=== PATIENT | female | born 1940 | race Caucasian/White ===

== ENCOUNTER → 2016-04-14 | Outpatient (CLI) | payer MEDICARE ==
[~2016-04-14] MED LIST: ALAV10TA PO; DIOV80TA2 PO; ESTR42.5V PV; GABA300C3 PO; MONT10TA2 PO; PRED50TA PO; PRIM50 PO; RANI150 PO; SERT50 PO; TAMS0.4C67 PO; VITATAB25 PO
== END ==
LOC: PLAB 11:30
DX: M31.6 Other giant cell arteritis (principal)
CPT/HCPCS: 85652

== ENCOUNTER → 2016-05-18 | Outpatient (CLI) | payer MEDICARE | LOC: PLAB 11:08 | DX: M31.6 Other giant cell arteritis (principal) | CPT/HCPCS: 36415; 85652 ==

== ENCOUNTER → 2017-01-14 | Outpatient (CLI) | payer MEDICARE ==
[~2017-01-14] MED LIST changes: +ALBU6.7H INH; +DIOV160T3 PO; +ESTR42.5V VAGINAL; +MIRA3350 PO; +OCUVTAB4 PO; +PRED5TAB PO; +PRIM50TA5 PO; +VITA1000 PO; +ZANT150T2 PO; +ZOLO50TA PO
[2017-01-14 12:28] LABS: AUTOMATED NEUTROPHIL # 6.9 TH/MM3 (1.8-7.7); BASOPHIL % 0.4 % (0.0-2.0); EOSINOPHIL # 0.2 TH/MM3 (0-0.4); EOSINOPHIL % 1.8 % (0.0-4.0); HEMATOCRIT 37.2 % (35.0-46.0); HEMO FLAGS DIFF FINAL; LYMPH % 13.4 % (9.0-44.0); LYMPHOCYTE # 1.2 TH/MM3 (1.0-4.8); MEAN CELL VOLUME 88.1 FL (80.0-100.0); MEAN CORPUSCULAR HEMOGLOBIN 29.7 PG (27.0-34.0); MEAN CORPUSCULAR HGB CONC 33.7 % (32.0-36.0); MONO % 6.6 % (0.0-8.0); NEUT % 77.8 % (16.0-70.0); PLATELET COUNT 226 TH/MM3 (150-450); RED BLOOD COUNT 4.22 MIL/MM3 (4.00-5.30); RED CELL DISTRIBUTION WIDTH 14.4 % (11.6-17.2); WHITE BLOOD COUNT 8.9 TH/MM3 (4.0-11.0)
[2017-01-14 12:37] LABS: ALT (GPT) 28 U/L (10-53); ANION GAP 7 MEQ/L (5-15); AST (GOT) 16 U/L (15-37); BICARBONATE 30.6 MEQ/L (21.0-32.0); BLOOD UREA NITROGEN 20 MG/DL (7-18); CHLORIDE 101 MEQ/L (98-107); GLOMERULAR FILTRATION RATE 72 ML/MIN (>89); GLUCOSE,FASTING 114 MG/DL (74-99); POTASSIUM 4.8 MEQ/L (3.5-5.1); SODIUM (NA) 139 MEQ/L (136-145)
[2017-01-14 12:39] LABS: ALKALINE PHOSPHATASE 72 U/L (45-117); TOTAL BILIRUBIN ADULT 0.4 MG/DL (0.2-1.0)
[2017-01-14 12:56] LABS: BLOOD, URINE NEG (NEG); COMMENT (UR) CULT NOT INDICATED; CULTURE IF INDICATED CULT NOT INDICATED; GLUCOSE,URINE NEG (NEG); KETONE, URINE NEG (NEG); MUCUS URINE FEW /lpf (OCC); NITRITE,URINE NEG (NEG); PH, URINE 6.5 (5.0-8.5); SQUAMOUS EPITHELIAL CELL URINE <1 /hpf (0-5); URINE COLOR LIGHT-YELLOW (YELLW/STRAW)
--- NOTE | 2017-01-15 12:07 | EKG ---
Date Performed: 01/14/2017 Time Performed: 11:45:42 PTAGE: 76 years EKG: Sinus rhythm NORMAL ECG Compared to prior tracing no significant change PREVIOUS TRACING 03/08/2014 12.46.00 DOCTOR: Glenroy Orantes Interpretating Date/Time 01/15/2017 12:06:59
== END ==
LOC: CPRE 11:14
PROVIDERS: ATTEND Obstetrics & Gynecology Gynecology
DX: Z01.812 Encounter for preprocedural laboratory examination (principal); Z01.810 Encounter for preprocedural cardiovascular examination; N81.6 Rectocele
CPT/HCPCS: 36415; 80053; 81001; 85025; 93005

== ENCOUNTER → 2017-01-20 | Day surgery (SDC) | payer MEDICARE ==
--- NOTE | 2017-01-14 11:40 | MH ---
cc: SONIA MONCADA DATE OF ADMISSION 01/20/2017 DATE OF 1940 REASON FOR ADMISSION Posterior repair HISTORY OF PRESENT ILLNESS The patient is a 76-year-old white female 2, para 2 status post prior hysterectomy. He is having issues with pelvic organ prolapse. In the office, we note stage II rectocele. The patient has multiple comorbidities including elevated body mass index, temporal arteritis, chronic constipation that increases the risk of failure and complication. After a long discussion, the patient has opted for pelvic repair. PAST MEDICAL HISTORY The patient's med medical history is notable for: 1. Hypertension 2. Neuropathy 3. Macular degeneration 4. Temporal arteritis ALLERGIES SULFA MEDICATIONS 1. Flomax 0.4 mg daily 2. Gabapentin 300 mg daily 3. Primidone 50 mg daily 4. Zoloft 50 mg daily 5. Prednisone 25 mg daily PAST SURGICAL HISTORY 1. Total abdominal hysterectomy for benign condition 2. Pelvic fracture 3. Tonsillectomy 4. Appendectomy OBSTETRICAL HISTORY Two vaginal deliveries. GYNECOLOGIC HISTORY No STD's or abnormal Pap smears. SOCIAL HISTORY A 20 pack-year smoking history, but quit smoking 20 years ago. has good social support. Also on the medical history. FAMILY HISTORY Noncontributory REVIEW OF SYSTEMS As above, no chest pain, orthopnea, PND. No nausea, vomiting, fevers or chills. No vaginal bleeding or discharge. PHYSICAL EXAM On exam, she is afebrile, vital signs stable. Blood pressure 140/80, height 5.3, weight 170, BMI is 30. GENERAL: The patient is alert and oriented in no acute distress. No sign of cognitive dysfunction or depression. HEENT: Within normal limits. NECK: Supple. No JVD. CHEST: Clear. HEART: Regular rate and rhythm. ABDOMEN: Soft and nontender. No hepatosplenomegaly. No CVA tenderness. PELVIC: Pelvic exam in the office, we note pop Q score Aa is -2, Ap is +2. Point C is -7. Genital hiatus 6, perineal body is 4, total vaginal length is 10. No significant postvoid residual. Further exam under anesthesia. EXTREMITIES: Warm, skin without rashes. NEUROLOGIC: Nonfocal. No DVT signs. ASSESSMENT Patient with stage II pelvic organ prolapse. The patient and I discussed options for management and treatment. She is at increased risk for failure secondary to chronic steroid use, elevated body mass index. Patient is aware of options. She is aware of issues regarding failure, pain, bleeding, infection as well as sexual dysfunction issues. The unlikely event of fistula is also discussed. At this point, we will proceed with pelvic repair procedure. We will use DVT prophylaxis with sequential compression device, antibiotic prophylaxis with Ancef 2 grams and I suspect anesthesia will want to give her a stress dose of steroids and I will defer to them on management of that. Anticipate outpatient procedure. MD SANKET Jewell/SUZIE /11:15 AM /11:28 AM
[~2017-01-20] VITALS: Ht 162.6 cm; Wt 80.9 kg
[~2017-01-20] MED LIST changes: -ALAV10TA PO; +CHLORHEXIDINE GLUCONATE 2 % 1 PACK (2 CLOTHS) TOPICAL PRN; -DIOV80TA2 PO; +DO NOT ADM ANY ANTICOAGULANT DRUGS PRN; -ESTR42.5V PV; +ESTROGENS CONJUGATED VAG CREA 15 APPL/30 GM TUBE ONE; +FLUORESCEIN SOD 10% SOLN 500 MG/5 ML AMP ONE; -GABA300C3 PO; +INSULIN HUMAN REGULAR 1,000 UNITS/10 ML VIAL SQ PRN; +KETOROLAC TROMETHAMINE 30 MG/ML (IVP) VIAL IV PUSH ONE; +KETOROLAC TROMETHAMINE 30 MG/ML (IVP) VIAL IV PUSH PRN; +KETOROLAC TROMETHAMINE 30 MG/ML (IVP) VIAL ONE; +LACTATED RINGER'S 1000 ML IV PRN; +LIDOCAINE 1%/EPINEPHrine 1:100,000 SOLN 50 ML VIAL ONE; +LIDOCAINE HCL 1% PF 5 ML SYRINGE OTHER ONE; +METOPROLOL TARTRATE 25 MG TAB PO PRN; +MIDAZOLAM HCL 2 MG/2 ML VIAL IV ONE; +ONDANSETRON HCL 4 MG/2 ML VIAL IV PRN; +ONDANSETRON HCL 4 MG/2 ML VIAL IV PUSH ONE; +POVIDONE IODINE 5% (ANTISEPSIS KIT) 4 APPLICATIONS EACH NARE PRN; -PRED50TA PO; -PRIM50 PO; +PROPOFOL 200 MG/20 ML AMP IV ONE; -RANI150 PO; -SERT50 PO; +SODIUM CHLORID 0.9% 500 ML IV PRN; -TAMS0.4C67 PO; -VITATAB25 PO; +ceFAZolin 2 GM PREMIX 50 ML IV SCH; +ePHEDrine/NS 25 MG/5 ML SYR IV ONE; +traMADol HCL 50 MG TAB PO PRN
--- NOTE | 2017-01-20 11:47 | MP ---
cc: SONIA MONCADA MD DATE OF SURGERY 01/20/2017 PREOPERATIVE DIAGNOSIS Rectocele. POSTOPERATIVE DIAGNOSES Rectocele with enterocele, mild apical prolapse. PROCEDURE 1. Posterior repair with enterocele repair. 1. Extraperitoneal apical suspension. 2. Perineoplasty. SURGEON MD Fer ANESTHESIA Laryngeal mask. PHYSICIST ACOUSTICS [facility] staff x2. FLUIDS 1000 cc crystalloid. BLOOD LOSS 20 cc. FINDINGS External genitalia poorly estrogenized. POP-Q score: Aa is -3, Ap is +1. Point C is -4. Total vaginal length is 10. Genital hiatus is 7. Perineal body is 4. Following repair, Aa is -3, Ap is -3. Point C is -8. Total vaginal length is 8. Genital hiatus is 6. Perineal body is 4. Rectal exam normal following repair. SPECIMENS Vaginal mucosa COMPLICATIONS None. DISPOSITION AND PLAN To the recovery room stable. COUNTS Needle and sponge counts correct. DRAINS Kenney catheter. ANTIBIOTIC PROPHYLAXIS Ancef 2 grams. DVT PROPHYLAXIS Sequential pressure device. TIME-OUT PROCEDURE Per protocol SUMMARY OF INDICATIONS Patient with symptomatic pelvic organ prolapse. The patient has multiple comorbidities including temporal arteritis, elevated body mass index and chronic steroid use that put her at increased risk for surgical complication. She had been considering pessary use but decided to have a surgical correction. PROCEDURE The patient was taken to the operating room theater, identified, prepped and draped in a fashion appropriate for the planned procedure. In light of her history of pelvic fracture, she was actually positioned while awake using appropriate modesty techniques and she had no pain with lithotomy position. She was then put under anesthesia. Kenney catheter was placed. The bladder was drained. We then performed posterior repair by infiltrating with epinephrine lidocaine solution, performing a pudendal block on each side. We then took the vaginal mucosa from the perineal body to the apex of the vagina, reflected the rectal tissues carefully. There was some mild to moderate scarring here but there was no damage to the rectum. We had one finger in the rectum for traction and counter-traction. Once we mobilized the vaginal mucosa from the rectum, we were able to perform posterior repair and enterocele repair with delayed absorbable suture. The apical suspension was performed extraperitoneal approach affixing the apex to the remnants of the cervical ring. The vaginal mucosa was trimmed, closed with a running Vicryl suture, perineoplasty performed in standard fashion. Above findings noted. Rectal exam confirmed no damage to the rectum, suture line intact. Hemostatic matrix was used during the case to obviate the need for packing. The patient tolerated the procedure well, was returned to Recovery in stable condition. MD SANKET Jewell/KARIN /11:25 AM /11:36 AM
[2017-01-20 13:19] VITALS: BP 120/49; PULSE 73; RESP 18; TEMP 97.5; O2SAT 96
== END | disposition home or self-care (01) ==
LOC: HSDC 07:48
PROVIDERS: ATTEND Obstetrics & Gynecology Gynecology
DX: N81.6 Rectocele (principal); K59.09 Other constipation; I10 Essential (primary) hypertension; Z87.891 Personal history of nicotine dependence; Z88.2 Allergy status to sulfonamides
CPT/HCPCS: 00902; 57250; 57282; 88302; J0690; J1885; J2250; J2405; J3010; J7120; 88305

== ENCOUNTER 2017-01-22 19:47 | Emergency (ER) | payer MEDICARE ==
[~2017-01-22] VITALS: Ht 160 cm; Wt 81.0 kg
[~2017-01-22 19:47] MED LIST changes: -CHLORHEXIDINE GLUCONATE 2 % 1 PACK (2 CLOTHS) TOPICAL PRN; -DO NOT ADM ANY ANTICOAGULANT DRUGS PRN; -ESTROGENS CONJUGATED VAG CREA 15 APPL/30 GM TUBE ONE; -FLUORESCEIN SOD 10% SOLN 500 MG/5 ML AMP ONE; -INSULIN HUMAN REGULAR 1,000 UNITS/10 ML VIAL SQ PRN; -KETOROLAC TROMETHAMINE 30 MG/ML (IVP) VIAL IV PUSH ONE; -KETOROLAC TROMETHAMINE 30 MG/ML (IVP) VIAL IV PUSH PRN; -KETOROLAC TROMETHAMINE 30 MG/ML (IVP) VIAL ONE; -LACTATED RINGER'S 1000 ML IV PRN; -LIDOCAINE 1%/EPINEPHrine 1:100,000 SOLN 50 ML VIAL ONE; -LIDOCAINE HCL 1% PF 5 ML SYRINGE OTHER ONE; -METOPROLOL TARTRATE 25 MG TAB PO PRN; -MIDAZOLAM HCL 2 MG/2 ML VIAL IV ONE; -MIRA3350 PO; -ONDANSETRON HCL 4 MG/2 ML VIAL IV PRN; -ONDANSETRON HCL 4 MG/2 ML VIAL IV PUSH ONE; -POVIDONE IODINE 5% (ANTISEPSIS KIT) 4 APPLICATIONS EACH NARE PRN; -PROPOFOL 200 MG/20 ML AMP IV ONE; -SODIUM CHLORID 0.9% 500 ML IV PRN; -ceFAZolin 2 GM PREMIX 50 ML IV SCH; -ePHEDrine/NS 25 MG/5 ML SYR IV ONE; -traMADol HCL 50 MG TAB PO PRN
[2017-01-22 19:56] VITALS: BP 124/59; PULSE 86; RESP 16
[2017-01-22] MEDS ORDERED: MIRA3350 PO (20:02)
--- NOTE | 2017-01-22 20:27 | PD ---
HPI Chief Complaint: GI Complaint Time Seen by Provider: 19:59 Travel History International Travel<30 days: No Contact w/Intl Traveler<30days: No Traveled to known affect area: No History of Present Illness HPI Patient is a 76-year-old female who 48 hours ago had a rectocele surgery by Dr. Monreo without complications she went home same day surgery and since then she has not been able to move her bowels. She called Dr. Monroe's office they advised her to take Colace and drink warm prune juice which she has done without relief of her symptoms she has no pain but she feels bloated as if she knows she has to go she does not even feel hungry because the fact that she says she feels very full. She called Dr. Monroe's office but they are unaware that she decided to come to the ER denies any bleeding she said she cannot force her bowel movement she will bleed. Denies diabetes has hypertension no other significant past medical history PFSH Past Medical History Arthritis: No Asthma: Yes Autoimmune Disease: Yes (temporal arteritis) Depression: Yes Heart Rhythm Problems: No Cancer: No High Cholesterol: No Chemotherapy: No Chest Pain: No Congestive Heart Failure: No COPD: No Cerebrovascular Accident: No Diabetes: No Endocrine: No Gastrointestinal Disorders: Yes (GERD) GERD: No Genitourinary: No Hiatal Hernia: No Hypertension: Yes Immune Disorder: Yes (POLYNEURALGIA RHEUMATICA) Kidney Stones: No Medical other: Yes (rectocele on 01-20-17) Musculoskeletal: Yes (LOW BACK PAIN FROM PREVIOUS BROKEN PELVIS ) Neurologic: Yes (essential tremor) Psychiatric: Yes Reproductive: No Respiratory: Yes (ASTHMA) Migraines: No Radiation Therapy: No Renal Failure: No Seizures: No Sickle Cell Disease: No Sleep Apnea: No Thyroid Disease: No Ulcer: No ?: Not Past Surgical History Abdominal Surgery: Yes (APPY) AICD: No Arteriovenous Shunt: Yes Cardiac Surgery: No Ear Surgery: No Endocrine Surgery: No Eye Surgery: No Genitourinary Surgery: No Gynecologic Surgery: Yes (1972 HYSTERECTOMY) Hysterectomy: Yes Insulin Pump: No Joint Replacement: No Pacemaker: No Thoracic Surgery: No Other Surgery: Yes Social History Alcohol Use: No Tobacco Use: No Substance Use: No Allergies-Medications (Allergen,Severity, Reaction): Coded Allergies: Sulfa (Sulfonamide Antibiotics) (Verified Allergy, Unknown, 01/22/17) Reported Meds & Prescriptions Reported Meds & Active Scripts Active Reported Miralax Powder (Polyethylene Glycol 3350 Powder) 17 Gm Powd 17 Gm PO DAILY Mix and dissolve one measuring cap-ful (17 grams) in water or juice. Proventil Hfa 6.7 GM Inh (Albuterol Sulfate) 90 Mcg/Act Aer 2 Puff INH Q4-6H PRN Preservision Areds (Multiple Vitamins W/ Minerals) 1 Tab 1 Tab PO BID Zoloft (Sertraline HCl) 50 Mg Tab 75 Mg PO HS Zantac (Ranitidine HCl) 150 Mg Tab 150 Mg PO DAILY Primidone 50 Mg Tab 50 Mg PO DAILY Prednisone 5 Mg Tab 5 Mg PO DAILY Singulair (Montelukast Sodium) 10 Mg Tab 10 Mg PO HS Estrace Vaginal (Estradiol) 0.01% Cream 1 Appl VAGINAL HS Vitamin D-1000 (Cholecalciferol) 1,000 Unit Tab 1,000 Units PO DAILY Diovan Hct (Valsartan-Hydrochlorothiazide) 160-12.5 Mg Tab 1 Tab PO DAILY Review of Systems Except as stated in HPI: all other systems reviewed are Neg Gastrointestinal: Positive: Constipation (constipation since rectocele surgery 48 hours ago) Physical Exam Narrative GENERAL: non toxic aoppearance no obvious pain SKIN: Warm and dry. HEAD: Atraumatic. Normocephalic. EYES: Pupils equal and round. No scleral icterus. No injection or drainage. ENT: No nasal bleeding or discharge. Mucous membranes pink and moist. NECK: Trachea midline. No JVD. CARDIOVASCULAR: Regular rate and rhythm. RESPIRATORY: No accessory muscle use. Clear to auscultation. Breath sounds equal bilaterally. GASTROINTESTINAL: Abdomen soft, non-tender, nondistended. Hepatic and splenic margins not palpable. RECTAL digit placed in the rectum at enteroitus led to serosanguinous fluid coming from periennial area no pus MUSCULOSKELETAL: Extremities without clubbing, cyanosis, or edema. No obvious deformities. NEUROLOGICAL: Awake and alert. No obvious cranial nerve deficits. Motor grossly within normal limits. Five out of 5 muscle strength in the arms and legs. Normal speech. PSYCHIATRIC: Appropriate mood and affect; insight and judgment normal. Data Data Last Documented VS Vital Signs Date Time Temp Pulse Resp B/P (MAP) Pulse Ox O2 Delivery O2 Flow Rate FiO2 11/10/17 19:56 86 16 124/59 (80) Orders Orders Abdomen, Flat & Upright (01/22/17 ) Dext 5%-Nacl 0.45% 1000 Ml Inj (D5w-1/2 (01/22/17 20:30) Ed Discharge Order (01/22/17 21:57) MDM Medical Decision Making Medical Screen Exam Complete: Yes Emergency Medical Condition: Yes Medical Record Reviewed: Yes Differential Diagnosis Postoperative constipation due to pain postoperative abscess versus postoperative pain versus constipation unspecified Narrative Course I did a KUB flat plate and upright to look for any severe constipation x-ray was read as normal but got bowel gas pattern and I spoke with Dr. Monroe after I did a rectal exam by digit placed in the rectum expressed serosanguineous fluid from the rectocele but no pus I explained that situation he felt she could follow up Wednesday there was nothing further to do and told to reassure her and sent her to continue with the bowel prep that they had given her and to follow-up Wednesday patient agrees discharged home follow-up Diagnosis Primary Impression: Postoperative pain Patient Instructions: Constipation (ED), General Instructions Disposition: 01 DISCHARGE HOME Condition: Rigoberto Holloway MD Jan 22, 2017 20:27
[2017-01-22] MEDS ORDERED: DEXT 5%-NACL 0.45% 1000 ML INJ 1,000 ML IV SCH (20:30)
--- NOTE | 2017-01-22 21:02 | RADRPT ---
EXAM DATE/TIME: 01/22/2017 20:31 [facility] COMPARISON: No previous studies available for comparison. INDICATIONS : Constipation since rectocele repair surgery 01/20/2017. MEDICAL HISTORY : Rectocele. Vaginal prolapse. SURGICAL HISTORY : Rectocele repair. ENCOUNTER: Initial ACUITY: 3 days PAIN SCORE: 7/10 LOCATION: Rectal/vaginal area. FINDINGS: Supine and upright views of the abdomen were performed. The abdominal bowel gas pattern is normal. No air fluid levels are seen. No abnormal masses, calcifications, or organomegaly is seen. The visu alized lower lungs are clear. No evidence of free intraperitoneal gas. Old trauma involving the righ t pelvis. CONCLUSION: Normal bowel gas pattern. Old trauma to the right pelvis. Epi Raya Jr., MD on January 22, 2017 at 20:59 Board Certified Radiologist. This report was verified electronically.
== END 2017-01-22 22:55 | disposition home or self-care (01) ==
LOC: NEPE 19:47
DX: G89.18 Other acute postprocedural pain (principal); I10 Essential (primary) hypertension; J45.909 Unspecified asthma, uncomplicated; F32.9 Major depressive disorder, single episode, unspecified; K21.9 Gastro-esophageal reflux disease without esophagitis; M31.6 Other giant cell arteritis; M35.3 Polymyalgia rheumatica
CPT/HCPCS: 74020; 99284

== ENCOUNTER → 2017-02-01 | Outpatient (CLI) | payer MEDICARE ==
[~2017-02-01] MED LIST changes: +MIRA3350 PO
== END ==
LOC: PLAB 15:00
DX: M31.6 Other giant cell arteritis (principal)
CPT/HCPCS: 36415; 85652

== ENCOUNTER → 2017-02-16 | Outpatient (CLI) | payer MEDICARE | LOC: PLAB 13:28 | DX: M31.6 Other giant cell arteritis (principal) | CPT/HCPCS: 36415; 85652 ==

== ENCOUNTER 2017-04-28 11:14 | Inpatient (IN) | payer MEDICARE ==
[~2017-04-28] VITALS: Ht 162.6 cm; Wt 82.3 kg
[2017-04-28] VITALS (7 sets, daily range): BP systolic 104–132; BP diastolic 51–65; PULSE 82–92; RESP 16–20; TEMP 99.3–100.4; O2SAT 93–98
[2017-04-28] MEDS ORDERED: LOPE-1 PO (11:43)
[2017-04-28] MEDS ORDERED: SODIUM CHLOR 0.9% 1000 ML INJ 1,000 ML IV SCH (11:49)
[2017-04-28] MEDS ORDERED: ONDANSETRON HCL 4 MG/2 ML VIAL IVP ONE (12:00)
--- NOTE | 2017-04-28 12:23 | PD ---
HPI Chief Complaint: GI Complaint Time Seen by Provider: 11:35 Travel History International Travel<30 days: No Contact w/Intl Traveler<30days: No Traveled to known affect area: No History of Present Illness HPI This is a 76-year-old female who presents for nausea. Approximately one week ago, she developed a sore throat. The urgent care facility told her she had strep throat and she was started on amoxicillin. She took this for a few days but developed diarrhea. 2 days ago, she was back to the urgent care facility and was switched to azithromycin. She states that last night, she had one episode of nausea and nonbilious, nonbloody emesis. Her last episode of diarrhea was yesterday, none today. She has had no vomiting today. She denies fever, chills. She has a mild cough. No difficulty breathing, speaking, swallowing. She does continue to have a mildly sore throat. Patient has polymyalgia rheumatica and has chronic body aches which are unchanged from prior. No fever, chills. Symptoms are mild in severity. Onset gradual. No known alleviating factors. She denies any abdominal pain. No urinary urgency, frequency, dysuria, hematuria. PFSH Past Medical History Arthritis: No Asthma: Yes Autoimmune Disease: Yes (temporal arteritis) Depression: Yes Heart Rhythm Problems: No Cancer: No Cardiovascular Problems: Yes (htn on meds) High Cholesterol: No Chemotherapy: No Chest Pain: No Congestive Heart Failure: No COPD: No Cerebrovascular Accident: No Diabetes: No Diminished Hearing: No Endocrine: No Gastrointestinal Disorders: Yes (GERD) GERD: No Genitourinary: No Hiatal Hernia: No Hypertension: Yes Immune Disorder: Yes (POLYNEURALGIA RHEUMATICA) Kidney Stones: No Musculoskeletal: Yes (LOW BACK PAIN FROM PREVIOUS BROKEN PELVIS ) Neurologic: Yes (essential tremor) Psychiatric: Yes Reproductive: No Respiratory: Yes (ASTHMA) Migraines: No Radiation Therapy: No Renal Failure: No Seizures: No Sickle Cell Disease: No Sleep Apnea: No Thyroid Disease: No Ulcer: No ?: Not Past Surgical History Abdominal Surgery: Yes (APPY) AICD: No Arteriovenous Shunt: Yes Cardiac Surgery: No Ear Surgery: No Endocrine Surgery: No Eye Surgery: No Genitourinary Surgery: No Gynecologic Surgery: Yes (1972 HYSTERECTOMY) Hysterectomy: Yes Insulin Pump: No Joint Replacement: No Pacemaker: No Thoracic Surgery: No Other Surgery: Yes Social History Alcohol Use: No Tobacco Use: No Substance Use: No Allergies-Medications (Allergen,Severity, Reaction): Coded Allergies: Sulfa (Sulfonamide Antibiotics) (Verified Allergy, Unknown, 04/28/17) Reported Meds & Prescriptions Reported Meds & Active Scripts Active Reported Imodium A-D (Loperamide HCl) 2 Mg Capsule 2 Mg PO DIRECTED PRN One capsule after each loose stool. Not to exceed 8 tablets per day. Proventil Hfa 6.7 GM Inh (Albuterol Sulfate) 90 Mcg/Act Aer 2 Puff INH Q4-6H PRN Preservision Areds (Multiple Vitamins W/ Minerals) 1 Tab 1 Tab PO BID Zoloft (Sertraline HCl) 50 Mg Tab 75 Mg PO HS Zantac (Ranitidine HCl) 150 Mg Tab 150 Mg PO DAILY Primidone 50 Mg Tab 50 Mg PO DAILY Prednisone 5 Mg Tab 5 Mg PO DAILY Singulair (Montelukast Sodium) 10 Mg Tab 10 Mg PO HS Estrace Vaginal (Estradiol) 0.01% Cream 1 Appl VAGINAL HS Vitamin D-1000 (Cholecalciferol) 1,000 Unit Tab 1,000 Units PO DAILY Diovan Hct (Valsartan-Hydrochlorothiazide) 160-12.5 Mg Tab 1 Tab PO DAILY Review of Systems Except as stated in HPI: all other systems reviewed are Neg Physical Exam Narrative GENERAL: Alert, well nourished, well appearing patient resting on the bed in no acute distress. Vital Signs reviewed SKIN: Focused skin assessment warm/dry. HEAD: Atraumatic. Normocephalic. EYES: Pupils equal and round. No scleral icterus. No injection or drainage. ENT: No nasal bleeding or discharge. Mucous membranes pink and moist. TMs clear bilaterally. No tenderness over the mastoids. Posterior oropharynx with no erythema, edema, exudate. Uvula is midline. NECK: Trachea midline. No JVD. Spontaneous, painless full range of motion with no meningismus CARDIOVASCULAR: Regular rate and rhythm. No murmur appreciated. Extremities warm and well perfused with bounding peripheral pulses RESPIRATORY: No accessory muscle use. Clear to auscultation. Breath sounds equal bilaterally. Breathing easily and speaking in full sentences GASTROINTESTINAL: Abdomen soft, non-tender, nondistended. Normal bowel sounds. No rigid, rebound, guarding MUSCULOSKELETAL: No obvious deformities. No clubbing. No cyanosis. No edema. Compartments are soft NEUROLOGICAL: Awake and alert. No obvious cranial nerve deficits. Motor grossly within normal limits. Normal speech. Sensation intact. Normal gait Data Data Last Documented VS Vital Signs Date Time Temp Pulse Resp B/P (MAP) Pulse Ox O2 Delivery O2 Flow Rate FiO2 04/28/17 15:27 82 16 105/63 (77) 95 Room Air 04/28/17 11:24 99.3 Orders Orders Complete Blood Count With Diff (04/28/17 11:49) Comprehensive Metabolic Panel (04/28/17 11:49) Lactic Acid Sepsis Protocol (04/28/17 11:49) Lipase (04/28/17 11:49) Urinalysis - C+S If Indicated (04/28/17 11:49) Influenzae A/B Antigen (04/28/17 11:49) Blood Culture (04/28/17 11:49) Chest, Pa & Lat (04/28/17 11:49) Ecg Monitoring (04/28/17 11:49) Iv Access Insert/Monitor (04/28/17 11:49) Oximetry (04/28/17 11:49) Group A Rapid Strep Screen (04/28/17 11:49) Ondansetron Inj (Zofran Inj) (04/28/17 12:00) Sodium Chlor 0.9% 1000 Ml Inj (Ns 1000 M (04/28/17 11:49) Vancomycin Inj (Vancomycin Inj) (04/28/17 13:00) Piperacil-Tazo 4.5 Gm Premix (Zosyn 4.5 (04/28/17 13:00) Strep Culture (Group A) (04/28/17 12:38) Urine Culture (04/28/17 12:20) Ct Thorax/ Chest W Iv Contrast (04/28/17 ) Iohexol 350 Inj (Omnipaque 350 Inj) (04/28/17 14:35) Admit Order (Ed Use Only) (04/28/17 15:28) Admit To Inpatient (04/28/17 ) Vital Signs (Adult) CHEIKH.Q4H (04/28/17 15:28) Activity Oob With Assistance (04/28/17 15:28) Appointment Manager / Telemetry CHEIKH.Q8H (04/28/17 15:28) Inpatient Certification (04/28/17 ) Labs Laboratory Tests Test 04/28/17 12:20 04/28/17 12:35 Urine Collection Type CATH Urine Color YELLOW Urine Turbidity SLIGHT Urine pH 6.0 Urine Specific [place] 1.033 Urine Protein 300 OR GREATER mg/dL Urine Glucose (UA) NEG mg/dL Urine Ketones 40 mg/dL Urine Occult Blood LARGE Urine Nitrite POS Urine Bilirubin NEG Urine Leukocyte Esterase NEG Urine RBC 15-19 /hpf Urine WBC 0-2 /hpf Urine Renal Epithelial Cells 0-5 /hpf Urine Bacteria OCC /hpf Urine Yeast (Budding) FEW Microscopic Urinalysis Comment CATH-CULTURE IND Urine Collection Time 12:20 White Blood Count 15.4 TH/MM3 Red Blood Count 3.66 MIL/MM3 Hemoglobin 10.5 GM/DL Hematocrit 31.3 % Mean Corpuscular Volume 85.5 FL Mean Corpuscular Hemoglobin 28.8 PG Mean Corpuscular Hemoglobin Concent 33.6 % Red Cell Distribution Width 13.4 % Platelet Count 232 TH/MM3 Mean Platelet Volume 8.1 FL Neutrophils (%) (Auto) 79.1 % Lymphocytes (%) (Auto) 9.0 % Monocytes (%) (Auto) 8.7 % Eosinophils (%) (Auto) 0.4 % Basophils (%) (Auto) 2.8 % Neutrophils # (Auto) 12.2 TH/MM3 Lymphocytes # (Auto) 1.4 TH/MM3 Monocytes # (Auto) 1.3 TH/MM3 Eosinophils # (Auto) 0.1 TH/MM3 Basophils # (Auto) 0.4 TH/MM3 CBC Comment DIFF FINAL Differential Comment Erythrocyte Sedimentation Rate GREATER THAN 140 mm/hr Blood Urea Nitrogen 17 MG/DL Creatinine 0.86 MG/DL Random Glucose 126 MG/DL Total Protein 7.5 GM/DL Albumin 2.9 GM/DL Calcium Level 8.5 MG/DL Alkaline Phosphatase 76 U/L Aspartate Amino Transf (AST/SGOT) 19 U/L Alanine Aminotransferase (ALT/SGPT) 15 U/L Total Bilirubin 1.0 MG/DL Sodium Level 129 MEQ/L Potassium Level 3.9 MEQ/L Chloride Level 96 MEQ/L Carbon Dioxide Level 24.5 MEQ/L Anion Gap 9 MEQ/L Estimat Glomerular Filtration Rate 64 ML/MIN Lactic Acid Level 0.9 mmol/L Lipase 99 U/L MDM Medical Decision Making Medical Screen Exam Complete: Yes Emergency Medical Condition: Yes Medical Record Reviewed: Yes Interpretation(s) Date/Time Source Procedure Growth Status 04/28/17 13:10 Blood Peripheral Aerobic Blood Culture Pending Received 04/28/17 13:10 Blood Peripheral Anaerobic Blood Culture Pending Received 04/28/17 12:55 Blood Peripheral Aerobic Blood Culture Pending Received 04/28/17 12:55 Blood Peripheral Anaerobic Blood Culture Pending Received 04/28/17 12:38 Throat Group A Streptococcus Screen Pending Received 04/28/17 12:38 Nasal Washing Influenza Types A,B Antigen (SRAVAN) - Final NEGATIVE FOR FLU A AND B ANTIGEN.... Complete 04/28/17 12:38 Throat Group A Streptococcus Screen (SRAVAN) - Final Complete 04/28/17 12:20 Urine Catheterized Urine Urine Culture Pending Received Laboratory Tests Test 04/28/17 12:20 04/28/17 12:35 Urine Collection Type CATH Urine Color YELLOW Urine Turbidity SLIGHT Urine pH 6.0 Urine Specific [place] 1.033 Urine Protein 300 OR GREATER mg/dL Urine Glucose (UA) NEG mg/dL Urine Ketones 40 mg/dL Urine Occult Blood LARGE Urine Nitrite POS Urine Bilirubin NEG Urine Leukocyte Esterase NEG Urine RBC 15-19 /hpf Urine WBC 0-2 /hpf Urine Renal Epithelial Cells 0-5 /hpf Urine Bacteria OCC /hpf Urine Yeast (Budding) FEW Microscopic Urinalysis Comment CATH-CULTURE IND Urine Collection Time 12:20 White Blood Count 15.4 TH/MM3 Red Blood Count 3.66 MIL/MM3 Hemoglobin 10.5 GM/DL Hematocrit 31.3 % Mean Corpuscular Volume 85.5 FL Mean Corpuscular Hemoglobin 28.8 PG Mean Corpuscular Hemoglobin Concent 33.6 % Red Cell Distribution Width 13.4 % Platelet Count 232 TH/MM3 Mean Platelet Volume 8.1 FL Neutrophils (%) (Auto) 79.1 % Lymphocytes (%) (Auto) 9.0 % Monocytes (%) (Auto) 8.7 % Eosinophils (%) (Auto) 0.4 % Basophils (%) (Auto) 2.8 % Neutrophils # (Auto) 12.2 TH/MM3 Lymphocytes # (Auto) 1.4 TH/MM3 Monocytes # (Auto) 1.3 TH/MM3 Eosinophils # (Auto) 0.1 TH/MM3 Basophils # (Auto) 0.4 TH/MM3 CBC Comment DIFF FINAL Differential Comment Blood Urea Nitrogen 17 MG/DL Creatinine 0.86 MG/DL Random Glucose 126 MG/DL Total Protein 7.5 GM/DL Albumin 2.9 GM/DL Calcium Level 8.5 MG/DL Alkaline Phosphatase 76 U/L Aspartate Amino Transf (AST/SGOT) 19 U/L Alanine Aminotransferase (ALT/SGPT) 15 U/L Total Bilirubin 1.0 MG/DL Sodium Level 129 MEQ/L Potassium Level 3.9 MEQ/L Chloride Level 96 MEQ/L Carbon Dioxide Level 24.5 MEQ/L Anion Gap 9 MEQ/L Estimat Glomerular Filtration Rate 64 ML/MIN Lactic Acid Level 0.9 mmol/L Lipase 99 U/L Last 24 hours Impressions Chest X-Ray 04/28/17 1149 Signed Impressions: Service Date/Time: Friday, April 28, 2017 12:06 - CONCLUSION: Cavitary lesion in the posterior mid right hemithorax measuring up to 7.5 cm. This could represent lung abscess or empyema if the lesion is pleural-based. Since there was a cystic lesion in a similar location on the prior study I suspect this is a lung cyst in the right lower lobe which has become secondarily infected. Consider chest CT with IV contrast for further characterization. Damir Lunsford MD Chest CT 04/28/17 0000 Signed Impressions: Service Date/Time: Friday, April 28, 2017 14:24 - CONCLUSION: 1. CT confirms the presence of a 5.8 x 5.9 cm cavitary lesion in the posterior right perihilar distribution with an air-fluid level. 2. A thin-walled parenchymal cyst was identified in the same location on a plain film examination from 2014. 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 3. 5 mm pleural-based nodule anterolaterally in the right middle lobe is overtly benign. Left lung is clear. 4. 1.6 cm lamellated gallstone Amadou Pyane MD Differential Diagnosis Sepsis, bronchitis, pneumonia, pharyngitis, gastroenteritis Narrative Course IV access was established. Blood cultures were sent. Labs, imaging were performed. Patient appears to have a lung abscess. She was given IV fluids and broad-spectrum IV antibiotics. I have reviewed the results of the workup with her. I spoke with the reading radiologist who recommends the patient be transferred to the main hospital for possible IR drainage/sampling. Sepsis Criteria SIRS Criteria (2 or more): Heart rate over 90, WBC > 05737, < 4000 or > 10% bands Sepsis Criteria (SIRS+source): Infect source susp/known Diagnosis Primary Impression: Sepsis Qualified Codes: A41.9 - Sepsis, unspecified organism Additional Impressions: Pulmonary abscess Qualified Codes: J85.1 - Abscess of lung with pneumonia UTI (urinary tract infection) Qualified Codes: N30.00 - Acute cystitis without hematuria Admitting Information Admitting Physician Requests: Admit Diann Rich MD Apr 28, 2017 12:23
--- NOTE | 2017-04-28 12:25 | RADRPT ---
EXAM DATE/TIME: 04/28/2017 12:06 [facility] COMPARISON: CHEST SINGLE AP, March 25, 2014, 14:14. INDICATIONS : Sore throat x 3 weeks. Cough. MEDICAL HISTORY : Hypertension. Gastroesophageal reflux disease. Asthma. FX pelvis. FX left ankle. Polyneuralgia R heumatica. SURGICAL HISTORY : Tonsillectomy. Appendectomy. Hysterectomy. ENCOUNTER: Initial ACUITY: 3 weeks PAIN SCORE: 0/10 LOCATION: chest FINDINGS: PA and lateral views of the chest demonstrate a normal-sized cardiac silhouette with calcification of the aorta. There is a cavitary lesion with air-fluid level either in the operative space or right lo wer lobe measuring approximately 7.5 x 6.5 x 5.6 cm. There was a simple lung cyst or cavity in this a isaias previously. There is minimal surrounding airspace consolidation. No pleural effusion or pneumotho rax is identified. Bones and soft tissues demonstrate no acute finding. CONCLUSION: Cavitary lesion in the posterior mid right hemithorax measuring up to 7.5 cm. This could represent sapp[place] ng abscess or empyema if the lesion is pleural-based. Since there was a cystic lesion in a similar lo cation on the prior study I suspect this is a lung cyst in the right lower lobe which has become seco ndarily infected. Consider chest CT with IV contrast for further characterization. Damir Lunsford MD on April 28, 2017 at 12:19 Board Certified Radiologist. This report was verified electronically.
[2017-04-28 12:48] LABS: AUTOMATED NEUTROPHIL # 12.2 TH/MM3 (1.8-7.7); BASOPHIL # 0.4 TH/MM3 (0-0.2); BASOPHIL % 2.8 % (0.0-2.0); EOSINOPHIL # 0.1 TH/MM3 (0-0.4); EOSINOPHIL % 0.4 % (0.0-4.0); HEMATOCRIT 31.3 % (35.0-46.0); HEMOGLOBIN 10.5 GM/DL (11.6-15.3); LYMPHOCYTE # 1.4 TH/MM3 (1.0-4.8); MEAN CELL VOLUME 85.5 FL (80.0-100.0); MEAN CORPUSCULAR HEMOGLOBIN 28.8 PG (27.0-34.0); MEAN CORPUSCULAR HGB CONC 33.6 % (32.0-36.0); MEAN PLATELET VOLUME 8.1 FL (7.0-11.0); MONO % 8.7 % (0.0-8.0); MONOCYTE # 1.3 TH/MM3 (0-0.9); NEUT % 79.1 % (16.0-70.0); PLATELET COUNT 232 TH/MM3 (150-450); RED BLOOD COUNT 3.66 MIL/MM3 (4.00-5.30); RED CELL DISTRIBUTION WIDTH 13.4 % (11.6-17.2); WHITE BLOOD COUNT 15.4 TH/MM3 (4.0-11.0)
[2017-04-28 12:51] LABS: BLOOD, URINE LARGE (NEG); GLUCOSE,URINE NEG (NEG); KETONE, URINE 40 mg/dL (NEG); NITRITE,URINE POS (NEG); URINE LEUKOCYTE ESTERASE NEG (NEG)
[2017-04-28 12:55] LABS: CHLORIDE 96 MEQ/L (98-107); SODIUM (NA) 129 MEQ/L (136-145)
[2017-04-28 12:59] LABS: ALBUMIN 2.9 GM/DL (3.4-5.0); BICARBONATE 24.5 MEQ/L (21.0-32.0); BLOOD UREA NITROGEN 17 MG/DL (7-18); CALCIUM 8.5 MG/DL (8.5-10.1); GLUCOSE,RANDOM 126 MG/DL (74-106)
[2017-04-28] MEDS ORDERED: PIPERACIL-TAZO 4.5 GM PREMIX 100 ML IV ONE (13:00)
[2017-04-28] MEDS ORDERED: VANCOMYCIN INJ 1,000 MG in SODIUM CHLOR 0.9% 250 ML INJ 250 ML IV ONE (13:00)
[2017-04-28 13:02] LABS: ALT (GPT) 15 U/L (10-53); AST (GOT) 19 U/L (15-37); CREATININE 0.86 MG/DL (0.50-1.00); GLOMERULAR FILTRATION RATE 64 ML/MIN (>89)
[2017-04-28 13:04] LABS: TOTAL PROTEIN 7.5 GM/DL (6.4-8.2)
[2017-04-28 13:05] LABS: ALKALINE PHOSPHATASE 76 U/L (45-117)
[2017-04-28 13:05] LABS: BILIRUBIN, URINE NEG (NEG)
[2017-04-28 13:06] LABS: BACTERIA, URINE OCC /hpf; RBC, URINE 15-19 /hpf (0-3); RENAL EPITHELIAL CELLS 0-5 /hpf; URINE COLOR YELLOW (YELLW/STRAW); WBC, URINE 0-2 /hpf (0-5)
[2017-04-28] MEDS ORDERED: IOHEXOL 350 MG/ML 10 ML VIAL (for RAD DIAG) IVCONTRAST ONE (14:35)
--- NOTE | 2017-04-28 15:04 | RADRPT ---
EXAM DATE/TIME: 04/28/2017 14:24 [facility] COMPARISON: CHEST SINGLE AP, March 25, 2014, 14:14. CHEST PA & LAT, April 28, 2017, 12:06. INDICATIONS : Cough. Abnormal chest x-ray. IV CONTRAST: 60 cc Omnipaque 350 (iohexol) IV RADIATION DOSE: 16.24 CTDIvol (mGy) MEDICAL HISTORY : Gastroesophageal reflux disease. Asthma. SURGICAL HISTORY : Appendectomy. Hysterectomy.AV shunt. ENCOUNTER: Initial ACUITY: 3 weeks PAIN SCALE: 0/10 LOCATION: Right chest TECHNIQUE: Volumetric scanning of the chest was performed. Using automated exposure control and adjustment of t he mA and/or kV according to patient size, radiation dose was kept as low as reasonably achievable to obtain optimal diagnostic quality images. DICOM format image data is available electronically for review and comparison. Follow-up recommendations for detected pulmonary nodules are based at a minimum on nodule size and pa tient risk factors according to Fleischner Society Guidelines. FINDINGS: LUNGS: CT confirms the presence of a 5.8 x 5.9 cm cavitary lesion in the posterior perihilar distribution of the right chest. On a plain film examination from 2014, a thin wall cyst was identified in this same location. The lesion now contains an air-fluid level and probably represents an infected cyst. Regio nal airspace disease just inferior to the cyst probably represents an inflammatory response. Minimal regional atelectatic changes as well. There is a 5 mm pleural-based nodule anterolaterally in the reg ion of the right middle lobe which is over 9. Left lung is clear. PLEURA: There is no pleural thickening or pleural effusion. MEDIASTINUM: The heart and great vessels demonstrate no acute abnormality. There is no mediastinal or hilar lymph adenopathy. AXILLAE: Within normal limits. No lymphadenopathy. SKELETAL: Within normal limits for patient age. MISCELLANEOUS: The visualized upper abdominal organs demonstrate no acute abnormality. 1.6 cm lamellated gallstone i n the gallbladder lumen. CONCLUSION: 1. CT confirms the presence of a 5.8 x 5.9 cm cavitary lesion in the posterior right perihilar distri bution with an air-fluid level. 2. A thin-walled parenchymal cyst was identified in the same location on a plain film examination fro 2014. 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 3. 5 mm pleural-based nodule anterolaterally in the right middle lobe is overtly benign. Left lung is clear. 4. 1.6 cm lamellated gallstone Amadou Payne MD on April 28, 2017 at 14:55 Board Certified Radiologist. This report was verified electronically.
[2017-04-28] MEDS ORDERED: NON-FORMULARY DRUG (Valsartan-Hydrochlorothiazide (Diovan Hct) 1 TAB) PO SCH (17:15)
[2017-04-28] MEDS ORDERED: MISCELLANEOUS PHARMACY INFORMATION XX PRN (17:30)
--- NOTE | 2017-04-28 17:32 | HHI.HP ---
[facility]Staff Admission Diagnosis Sepsis, Lung Abscess Diagnoses: Chief Complaint: Feeling ill Travel History International Travel<30 Days: No Contact w/Intl Traveler <30 Da: No Traveled to Known Affected Are: No History of Present Illness 76-year-old white female being admitted for this lung abscess. Patient was in her usual state of health until a few weeks ago when she began experiencing a decreased appetite. She developed intermittent nausea which then progressed to becoming almost constant with every meal over the past week. She did develop a productive cough with yellow sputum that started about a week ago. She was first diagnosed with having strep throat in the clinic and was put on amoxicillin but later had diarrhea and was switched over to azithromycin. However she reports having trouble keeping down all of her medications including the prescribed antibiotics due to persistently worsening nausea. Patient went to the urgent care this morning and was thus referred to the emergency department. Patient does report feeling weaker overall with chills. She denies having any carlos chest pain. Past medical history significant for temporal arteritis, patient is managed remotely by her collections director in [place] who orders since standing orders of sed rates and adjusts her prednisone dosing from there. Patient has a history of macular degeneration. Patient says she has not taken her prednisone dose in many days and is concerned about this. Patient social history significant for smoking for about 40 years up until about 20 years ago. She denies drinking. Family history is significant for macular degeneration in her mother. Review of Systems Except as stated in HPI: all other systems reviewed are Neg Past Family Social History Allergies: Coded Allergies: Sulfa (Sulfonamide Antibiotics) (Verified Allergy, Unknown, 04/28/17) Physical Exam Vital Signs Vital Signs Date Time Temp Pulse Resp B/P (MAP) Pulse Ox O2 Delivery O2 Flow Rate FiO2 04/28/17 15:27 82 16 105/63 (77) 95 Room Air 04/28/17 12:45 96 04/28/17 11:50 16 04/28/17 11:24 99.3 92 16 119/65 (83) 95 Physical Exam VS: afebrile GENERAL: Lying in bed, with chills and tremors, otherwise has unlabored breathing SKIN: Warm and dry. EYES: No scleral icterus. No injection or drainage. ENT: No nasal bleeding or discharge. Mucous membranes pink and moist. CARDIOVASCULAR: Regular rate and rhythm. no murmurs RESPIRATORY: No accessory muscle use. min crackles bibasilarly, otherwise coarse BS that have good aeration GASTROINTESTINAL: Abdomen soft, non-tender, nondistended. Extremities: No clubbing, cyanosis, or edema. No obvious deformities. MUSCULOSKELETAL: adequate muscle bulk and tone for age and habitus NEUROLOGICAL: Awake and alert. No obvious cranial nerve deficits. No facial droop nor slurred speech noted. PSYCHIATRIC: Appropriate mood and affect; insight and judgment normal. Laboratory Laboratory Tests Test 04/28/17 12:20 04/28/17 12:35 Urine Collection Type CATH Urine Color YELLOW Urine Turbidity SLIGHT Urine pH 6.0 Urine Specific [place] 1.033 Urine Protein 300 OR GREATER Urine Glucose (UA) NEG Urine Ketones 40 Urine Occult Blood LARGE Urine Nitrite POS Urine Bilirubin NEG Urine Leukocyte Esterase NEG Urine RBC 15-19 Urine WBC 0-2 Urine Renal Epithelial Cells 0-5 Urine Bacteria OCC Urine Yeast (Budding) FEW Microscopic Urinalysis Comment CATH-CULTURE IND Urine Collection Time 12:20 White Blood Count 15.4 Red Blood Count 3.66 Hemoglobin 10.5 Hematocrit 31.3 Mean Corpuscular Volume 85.5 Mean Corpuscular Hemoglobin 28.8 Mean Corpuscular Hemoglobin Concent 33.6 Red Cell Distribution Width 13.4 Platelet Count 232 Mean Platelet Volume 8.1 Neutrophils (%) (Auto) 79.1 Lymphocytes (%) (Auto) 9.0 Monocytes (%) (Auto) 8.7 Eosinophils (%) (Auto) 0.4 Basophils (%) (Auto) 2.8 Neutrophils # (Auto) 12.2 Lymphocytes # (Auto) 1.4 Monocytes # (Auto) 1.3 Eosinophils # (Auto) 0.1 Basophils # (Auto) 0.4 CBC Comment DIFF FINAL Differential Comment Blood Urea Nitrogen 17 Creatinine 0.86 Random Glucose 126 Total Protein 7.5 Albumin 2.9 Calcium Level 8.5 Alkaline Phosphatase 76 Aspartate Amino Transf (AST/SGOT) 19 Alanine Aminotransferase (ALT/SGPT) 15 Total Bilirubin 1.0 Sodium Level 129 Potassium Level 3.9 Chloride Level 96 Carbon Dioxide Level 24.5 Anion Gap 9 Estimat Glomerular Filtration Rate 64 Lactic Acid Level 0.9 Lipase 99 Date/Time Source Procedure Growth Status 04/28/17 13:10 Blood Peripheral Aerobic Blood Culture Pending Received 04/28/17 13:10 Blood Peripheral Anaerobic Blood Culture Pending Received 04/28/17 12:38 Throat Group A Streptococcus Screen Pending Received 04/28/17 12:20 Urine Catheterized Urine Urine Culture Pending Received Result Diagram: 04/28/17 1235 04/28/17 1235 Imaging Last Impressions Chest X-Ray 04/28/17 1149 Signed Impressions: Service Date/Time: Friday, April 28, 2017 12:06 - CONCLUSION: Cavitary lesion in the posterior mid right hemithorax measuring up to 7.5 cm. This could represent lung abscess or empyema if the lesion is pleural-based. Since there was a cystic lesion in a similar location on the prior study I suspect this is a lung cyst in the right lower lobe which has become secondarily infected. Consider chest CT with IV contrast for further characterization. Damir Lunsford MD Chest CT 04/28/17 0000 Signed Impressions: Service Date/Time: Friday, April 28, 2017 14:24 - CONCLUSION: 1. CT confirms the presence of a 5.8 x 5.9 cm cavitary lesion in the posterior right perihilar distribution with an air-fluid level. 2. A thin-walled parenchymal cyst was identified in the same location on a plain film examination from 2014. 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 3. 5 mm pleural-based nodule anterolaterally in the right middle lobe is overtly benign. Left lung is clear. 4. 1.6 cm lamellated gallstone MD Logan Edwards VTE Risk Assessment Caprini VTE Risk Assessment: Mod/High Risk (score >= 2) Caprini Risk Assessment Model Point Value = 1 Point Value = 2 Point Value = 3 Point Value = 5 Age 41-60 Minor surgery BMI > 25 kg/m2 Swollen legs Varicose veins or History of unexplained or recurrent spontaneous Oral contraceptives or hormone replacement Sepsis (< 1 month) Serious lung disease, including pneumonia (< 1 month) Abnormal pulmonary function Acute myocardial infarction Congestive heart failure (< 1 month) History of inflammatory bowel disease Medical patient at bed rest Age 61-74 Arthroscopic surgery Major open surgery (> 45 min) Laparoscopic surgery (> 45 min) Malignancy Confined to bed (> 72 hours) Immobilizing plaster cast Central venous access Age >= 75 History of VTE Family history of VTE Factor V Leiden Prothrombin [id number] Lupus anticoagulant Anticardiolipin antibodies Elevated serum homocysteine Heparin-induced thrombocytopenia Other congenital or acquired thrombophilia Stroke (< 1 month) Elective arthroplasty Hip, pelvis, or leg fracture Acute spinal cord injury (< 1 month) Prophylaxis Regimen Total Risk Factor Score Risk Level Prophylaxis Regimen 0-1 Low Early ambulation 2 Moderate Order ONE of the following: *Sequential Compression Device (SCD) *Heparin 5000 units SQ BID 3-4 Higher Order ONE of the following medications: *Heparin 5000 units SQ TID *Enoxaparin/Lovenox 40 mg SQ daily (WT < 150 kg, CrCl > 30 mL/min) *Enoxaparin/Lovenox 30 mg SQ daily (WT < 150 kg, CrCl > 10-29 mL/min) *Enoxaparin/Lovenox 30 mg SQ BID (WT < 150 kg, CrCl > 30 mL/min) AND/OR *Sequential Compression Device (SCD) 5 or more Highest Order ONE of the following medications: *Heparin 5000 units SQ TID (Preferred with Epidurals) *Enoxaparin/Lovenox 40 mg SQ daily (WT < 150 kg, CrCl > 30 mL/min) *Enoxaparin/Lovenox 30 mg SQ daily (WT < 150 kg, CrCl > 10-29 mL/min) *Enoxaparin/Lovenox 30 mg SQ BID (WT < 150 kg, CrCl > 30 mL/min) AND *Sequential Compression Device (SCD) Assessment and Plan Assessment and Plan 76-year-old white female being admitted for lung abscess Lung abscess - Etiology is not clear at this time. I independently reviewed the CT scan and see almost a 6 x 6 cm abscess in the right posterior field. Discussed case with emergency room physician who spoke with interventional radiologist who thinks that he can possibly drain the lesion tomorrow morning. I also call a CT surgeon who recommended this as a first step as well. Per interventional radiology and CT surgery patient can stay at [facility] for now. - pulmonology and ID consulted - received zosyn and vanc in ED; i will administer Merrem for now until ID adjusts. N/V/D - s/p bolus. - IV emetics prn - if diarrhea persists, will obtain C.diff Temporal arteritis - ordering Sed Rate, nursing to contact patient's collections director in AM to obtain instructions for appropriate sed rate testing and further dosing - resume home prednisone; if unable to tolerate po, will consider administering solumedrol IV essential tremor - home primidone HTN -home med SCDs until anticipated procedure is over. Physician Certification 2 Midnight Certification Type: Admission for Inpatient Services Order for Inpatient Services The services are ordered in accordance with Medicare regulations or non- Medicare payer requirements, as applicable. In the case of services not specified as inpatient-only, they are appropriately provided as inpatient services in accordance with the 2-midnight benchmark. Estimated LOS (days): 3 3 days is the estimated time the patient will need to remain in the hospital, assuming treatment plan goals are met and no additional complications. Post-Hospital Plan: Not yet determined Hung Sheppard MD Apr 28, 2017 17:32
[2017-04-28] MEDS: MEROPENEM INJ 1,000 MG in SODIUM CHLORIDE 0.9% INJ 100 ML IV SCH (18:02)
[2017-04-28] MEDS: PRIMIDONE 50 MG TAB PO SCH (18:03)
[2017-04-28] MEDS: predniSONE 5 MG TAB PO SCH (18:03)
[2017-04-28] MEDS: SODIUM CHLOR 0.9% 1000 ML INJ 1,000 ML IV SCH (18:03)
[2017-04-28] MEDS ORDERED: ONDANSETRON HCL 4 MG/2 ML VIAL IV PUSH PRN (18:15)
[2017-04-28] MEDS ORDERED: ONDANSETRON HCL 4 MG/2 ML VIAL IV PUSH ONE (18:15)
[2017-04-28] MEDS: ACETAMINOPHEN 325 MG TAB PO PRN (18:22)
[2017-04-28] MEDS: RESP: ALBUTEROL 2.5 MG/IPRATROPIUM 0.5 MG NEB (SCH) NEB (19:13)
[2017-04-28] MEDS: SERTRALINE HCL 50 MG TAB PO SCH (21:39)
[2017-04-28] MEDS: MULTIVITAMINS/MINERALS THERAPEUTIC TAB PO SCH (21:40)
[2017-04-28] MEDS: FAMOTIDINE 20 MG TAB PO SCH (21:40)
[2017-04-28] MEDS: MONTELUKAST SODIUM 10 MG TAB PO SCH (21:40)
[2017-04-28] MEDS: CHOLECALCIFEROL (VIT D3) 1000 UNIT TAB PO SCH (21:43)
[2017-04-28] MEDS: ESTRADIOL 0.1 MG/GM VAG CREAM 42.5 GM VAGINAL SCH (21:43)
--- NOTE | 2017-04-28 22:37 | MB ---
cc: KAREN JONES DATE OF CONSULTATION: 04/28/2017 REASON FOR CONSULTATION: Lung abscess. HISTORY OF PRESENT ILLNESS Mrs. Bravo is a 76-year-old female who tells me she had a URI back in January. She thought she had the flu and was sick for several days gradually improved, however, again in March had felt ill with fever, chills, cough, with thick yellowish mucoid sputum. She was treated for same with antibiotics. She now feels weak with chills, presents to the ER with evidence of a cavitary density in the right upper lung lobe posteriorly. This space was occupied by a cyst noted on the CT of 2004. PAST MEDICAL HISTORY 1. History of COPD on albuterol at home. 2. Acid reflux disease. 3. Hypertension. 4. Essential tremor. PAST SURGICAL HISTORY: Previous appendectomy, hysterectomy. SOCIAL HISTORY Does not smoke, does not drink. No TB or industrial exposure. FAMILY HISTORY Noncontributory. ALLERGIES Sulfa drugs MEDICATIONS Medications at home include: 1. Proventil. 1. Zoloft 2. Zantac. 3. Primidone. 4. Prednisone 5 mg a day. 5. Singulair. 6. Estrace. REVIEW OF SYSTEMS 12-point review of systems as per HPI and past history otherwise negative. PHYSICAL EXAMINATION: On exam temperature 99, pulse 90, respirations 16, blood pressure 120/60, oxygen saturation 96% on two liters oxygen nasal cannula. HEENT: Exam unremarkable. Eyes without icterus. Neck: Without adenopathy or thyroid enlargement. Central trachea. Chest: No dullness to percussion. Few scattered rhonchi right upper lung on auscultation. Cardiac exam: PMI distant. S1-S2 audible. No murmur, no rub. Abdomen: Lax, bowel sounds audible. Extremities: No clubbing, cyanosis or edema. Skin: Normal. No lymphadenopathy. LABORATORY DATA White count 15,000, hemoglobin 10.5, hematocrit 31, platelets 232,000, Sodium 129, potassium 3.9, BUN 17, creatinine 0.6, creatinine 0.86. IMPRESSION 1. Cavitary lesion right upper lung with a previous cyst known to have been present since 2014. 2. Bronchial asthma and/or COPD. PLAN: The patient has been started on antibiotic therapy and appropriately so. ID consult is pending. In view of the previous presence of a cyst, this is probably a fluid filled cyst in the right upper lung and drainage of the fluid within the cyst would be helpful, although carries some risk of pneumothorax or other complications. However, it is important that cultures be obtained to assess the type of infection. Radiology is proceeding with same. I do not believe the cavity itself has been resolved, however, the fluid should resolve over time. Will follow the patient's course along with you. Meanwhile, continue her bronchodilator. I do thank you for asking me to partake in Mrs. Bravo's care. Karen Jones MD WWW/MEME /7:03 PM /10:11 PM
[2017-04-29] VITALS (13 sets, daily range): BP systolic 102–158; BP diastolic 51–71; PULSE 70–87; RESP 18–22; TEMP 97.2–100.2; O2SAT 90–96
[2017-04-29] MEDS: MEROPENEM INJ 1,000 MG in SODIUM CHLORIDE 0.9% INJ 100 ML IV SCH ×2 (03:05→10:21)
[2017-04-29] MEDS: ACETAMINOPHEN 325 MG TAB PO PRN (04:56)
[2017-04-29] MEDS: SODIUM CHLOR 0.9% 1000 ML INJ 1,000 ML IV SCH ×2 (05:01→18:15)
[2017-04-29 06:37] LABS: AUTOMATED NEUTROPHIL # 8.4 TH/MM3 (1.8-7.7); BASOPHIL % 0.2 % (0.0-2.0); EOSINOPHIL # 0.1 TH/MM3 (0-0.4); EOSINOPHIL % 0.7 % (0.0-4.0); HEMATOCRIT 26.5 % (35.0-46.0); HEMOGLOBIN 8.8 GM/DL (11.6-15.3); LYMPH % 8.8 % (9.0-44.0); LYMPHOCYTE # 0.9 TH/MM3 (1.0-4.8); MEAN CELL VOLUME 85.6 FL (80.0-100.0); MEAN CORPUSCULAR HEMOGLOBIN 28.4 PG (27.0-34.0); MEAN CORPUSCULAR HGB CONC 33.2 % (32.0-36.0); MEAN PLATELET VOLUME 7.8 FL (7.0-11.0); MONO % 10.1 % (0.0-8.0); MONOCYTE # 1.1 TH/MM3 (0-0.9); NEUT % 80.2 % (16.0-70.0); PLATELET COUNT 213 TH/MM3 (150-450); RED BLOOD COUNT 3.09 MIL/MM3 (4.00-5.30); RED CELL DISTRIBUTION WIDTH 13.4 % (11.6-17.2); WHITE BLOOD COUNT 10.5 TH/MM3 (4.0-11.0)
[2017-04-29 06:55] LABS: INTERNATIONAL NORMALIZED RATIO 1.2 RATIO
[2017-04-29 07:13] LABS: BICARBONATE 26.3 MEQ/L (21.0-32.0); CALCIUM 7.5 MG/DL (8.5-10.1); CREATININE 0.54 MG/DL (0.50-1.00)
[2017-04-29] MEDS: RESP: ALBUTEROL 2.5 MG/IPRATROPIUM 0.5 MG NEB (SCH) NEB ×3 (07:35→19:16)
[2017-04-29] MEDS: predniSONE 5 MG TAB PO SCH (08:43)
[2017-04-29] MEDS: HYDROCHLOROTHIAZIDE 12.5 MG CAP PO SCH (08:43)
[2017-04-29] MEDS: PRIMIDONE 50 MG TAB PO SCH (08:43)
[2017-04-29] MEDS: FAMOTIDINE 20 MG TAB PO SCH ×2 (08:43→21:25)
[2017-04-29] MEDS: CHOLECALCIFEROL (VIT D3) 1000 UNIT TAB PO SCH (08:43)
[2017-04-29] MEDS: MULTIVITAMINS/MINERALS THERAPEUTIC TAB PO SCH ×2 (08:44→21:25)
[2017-04-29] MEDS: VALSARTAN 80 MG TAB PO SCH (08:45)
--- NOTE | 2017-04-29 12:04 | HHI.PR ---
Subjective Remarks Nursing denies any deterioration since last night. Patient says her nausea is much better. Was able to eat some dinner last night. Objective Vital Signs Date Time Temp Pulse Resp B/P (MAP) Pulse Ox O2 Delivery O2 Flow Rate FiO2 04/29/17 11:25 100.2 84 22 158/68 (98) 95 04/29/17 08:00 97.2 75 18 102/51 (68) 94 04/29/17 07:37 96 21 04/29/17 05:17 85 04/29/17 04:00 98.0 78 20 113/52 (72) 95 04/29/17 00:00 98.4 75 20 123/59 (80) 94 04/29/17 00:00 98.4 75 20 123/59 (80) 94 04/28/17 20:00 100.0 90 20 104/51 (68) 98 04/28/17 20:00 100.0 90 20 104/51 (68) 93 04/28/17 19:13 93 21 04/28/17 18:01 100.4 87 19 121/61 (81) 95 04/28/17 17:30 89 16 132/51 (78) 93 04/28/17 15:27 82 16 105/63 (77) 95 Room Air 04/28/17 12:45 96 I/O 04/28/17 04/28/17 04/28/17 04/29/17 04/29/17 04/29/17 07:00 15:00 23:00 07:00 15:00 23:00 Intake Total 1100 ml 250 ml 1114 ml Balance 1100 ml 250 ml 1114 ml Intake Oral 240 ml IV Total 1100 ml 250 ml 874 ml # Voids 2 # Bowel Movements 0 Result Diagram: 04/29/17 0555 04/29/17 0555 Objective Remarks Lying in bed, no acute distress Clear lungs bilaterally, no cyanosis A/P Assessment and Plan 76-year-old white female being admitted for lung abscess Lung abscess from possible fluid cyst - d/w radiology, will transfer to [facility] for needle bx/aspiration and closer monitoring post-procedure - pulmonology following - Merrem for now until ID adjusts. - telemetry N/V/D - clinically improved - c.diff prn diarrhea - continue zofran prn nausea Temporal arteritis - ESR likely elevated from infx, continue home prednisone for now essential tremor - home primidone HTN -home med SCDs until anticipated procedure is over. Hung Sheppard MD Apr 29, 2017 12:04
--- NOTE | 2017-04-29 14:04 | HHI.PR ---
Addendum to Inpatient Note Additional Information attempted to see the pt in [facility] will follow Apryl Eden MD Apr 29, 2017 14:04
[2017-04-29] MEDS ORDERED: LIDOCAINE HCL 1% 20 ML VIAL ONE (14:12)
[2017-04-29] MEDS ORDERED: fentaNYL CITRATE 250 MCG/5 ML AMP ONE (14:18)
[2017-04-29] MEDS ORDERED: MIDAZOLAM HCL 2 MG/2 ML VIAL ONE ×2 (14:18)
--- NOTE | 2017-04-29 15:05 | PD.RAD ---
Post CT Procedure Prog Note Pre Procedure Diagnosis: (1) Pulmonary abscess (2) Sepsis Post Procedure Diagnosis: (1) Pulmonary abscess (2) Sepsis Procedure Date: Apr 29, 2017 Supervising Radiologist: Amadou Payne Anesthesia: Local, Analgesia, Conscious Sedation Plan of Activity Patient to Unit: ROPU Patient Condition: Good See PACS Report for procedural detail/treatment Drainage Procedure Procedure 1 Imaging Guidance: CT Side: Right Procedure Type: Abscess Drainage (lung cyst) Procedure: Placement [place]: 6 Drainage: Suction (syringe) Fluid Removal (CCs): 30 Fluid Description: Purulent Findings: Small, post procedural focal ptx Amadou Payne MD Apr 29, 2017 15:05
--- NOTE | 2017-04-29 16:22 | RADRPT ---
EXAM DATE/TIME: 04/29/2017 15:21 [facility] COMPARISON: CT THORAX W CONTRAST, April 28, 2017, 14:24. CHEST PA & LAT, April 28, 2017, 12:06. CT GUIDED ASPIRATION, April 29, 2017, 14:33. INDICATIONS : Post aspiration of right lung MEDICAL HISTORY : Hypertension. Gastroesophageal reflux disease. asthma SURGICAL HISTORY : Appendectomy. Hysterectomy. AV shunt ENCOUNTER: Initial ACUITY: 2 days PAIN SCORE: 0/10 LOCATION: Bilateral chest FINDINGS: Residual airspace disease is identified in the mid to upper right lung field following aspiration of a cavitary lesion. There is no evidence of pneumothorax. Left lung remains clear. CONCLUSION: No evidence of pneumothorax following aspiration of a cavitary lesion within the right midlung. Resid ual airspace disease is noted following aspiration. Ez Manning MD on April 29, 2017 at 16:18 Board Certified Radiologist. This report was verified electronically.
--- NOTE | 2017-04-29 16:23 | PD.ID.CON ---
History of Present Illness Service ID Consult Requested By Dr Norton Reason for Consult lung abscess Primary Care Physician Non-Staff Diagnoses: History of Present Illness 76 yo femeale with PMR/ on low dose Prednisone developped URI 1 month ago which she recovered from , then later noticed fever/malise/chills/ productrive cough with green sputum Pt was unable to perfor what she normallyn would Apparently was given amoxivillin which caused severe nause/vomiting and it was switched to azithromycin She presented with the above symptoms to ER and underwent w/u that revealed CT presence of a 5.8 x 5.9 cm cavitary lesion in the posterior right perihilar distribution with an air-fluid level. aspirated by IR, sent for clx ESR >140 Review of Systems Constitutional: COMPLAINS OF: Fatigue, Fever, Chills, Night Sweats Respiratory: COMPLAINS OF: Cough Except as stated in HPI: all other systems reviewed are Neg Past Family Social History Allergies: Coded Allergies: Sulfa (Sulfonamide Antibiotics) (Verified Allergy, Unknown, 04/28/17) Past Medical History 1. History of COPD on albuterol at home. 2. Acid reflux disease. 3. Hypertension. 4. Essential tremor. Past Surgical History sp appendectomy, hysterectomy. Active Ordered Medications Medications where reviewed in EMR Antibiotics Include: meropenem vancomycin Family History reviewed Noncontributory. Social History Does not smoke, does not drink. No TB or industrial exposure. Past tobacco 40 pakc/yrs. Quit [id number] Physical Exam Vital Signs Vital Signs Date Time Temp Pulse Resp B/P (MAP) Pulse Ox O2 Delivery O2 Flow Rate FiO2 04/29/17 15:15 98.7 85 20 118/52 (74) 90 04/29/17 11:25 100.2 84 22 158/68 (98) 95 04/29/17 08:00 97.2 75 18 102/51 (68) 94 04/29/17 07:37 96 21 04/29/17 05:17 85 04/29/17 04:00 98.0 78 20 113/52 (72) 95 04/29/17 00:00 98.4 75 20 123/59 (80) 94 04/29/17 00:00 98.4 75 20 123/59 (80) 94 04/28/17 20:00 100.0 90 20 104/51 (68) 98 04/28/17 20:00 100.0 90 20 104/51 (68) 93 04/28/17 19:13 93 21 04/28/17 18:01 100.4 87 19 121/61 (81) 95 04/28/17 17:30 89 16 132/51 (78) 93 Physical Exam CONSTITUTIONAL/GENERAL: This is an obese elderly patient, in no apparent distress. TUBES/LINES/DRAINS: SKIN: No jaundice, rashes, or lesions. . Skin temperature appropriate. Not diaphoretic. HEAD: Atraumatic. Normocephalic. EYES: Pupils equal and round and reactive. Extraocular motions intact. No scleral icterus. No injection or drainage. Fundi not examined. ENT: Hearing grossly normal. Nose without bleeding or purulent drainage. Throat without visible erythema, exudates, masses, or lesions. NECK: Trachea midline. Supple, nontender. No palpable thyroid enlargement or nodularity. CARDIOVASCULAR: Regular rate and rhythm without murmurs, gallops, or rubs. No JVD. Peripheral pulses symmetric. RESPIRATORY/CHEST: Symmetric, unlabored respirations. Clear to auscultation L. R lung field with crackes and rhoionchi posteriorly Breath sounds equal bilaterally. GASTROINTESTINAL: Abdomen soft, non-tender, nondistended. No hepato-splenomegaly , or palpable masses. No guarding. Bowel sounds present. GENITOURINARY: Without palpable bladder distension. MUSCULOSKELETAL: Extremities without clubbing, cyanosis, or edema. No joint tenderness or effusion noted. No calf tenderness. No mottling or clubbing. LYMPHATICS: No palpable axilla or supraclavicular adenopathy. NEUROLOGICAL: Awake and alert. Motor and sensory grossly within normal limits. Follows commands. Cognitively sharp. Moves all extremities. PSYCHIATRIC: No obvious anxiety/depression. no apparent hallucinations or other psychotic thought process. Laboratory Laboratory Tests Test 04/29/17 05:55 White Blood Count 10.5 Red Blood Count 3.09 Hemoglobin 8.8 Hematocrit 26.5 Mean Corpuscular Volume 85.6 Mean Corpuscular Hemoglobin 28.4 Mean Corpuscular Hemoglobin Concent 33.2 Red Cell Distribution Width 13.4 Platelet Count 213 Mean Platelet Volume 7.8 Neutrophils (%) (Auto) 80.2 Lymphocytes (%) (Auto) 8.8 Monocytes (%) (Auto) 10.1 Eosinophils (%) (Auto) 0.7 Basophils (%) (Auto) 0.2 Neutrophils # (Auto) 8.4 Lymphocytes # (Auto) 0.9 Monocytes # (Auto) 1.1 Eosinophils # (Auto) 0.1 Basophils # (Auto) 0.0 CBC Comment DIFF FINAL Differential Comment Prothrombin Time 12.0 Prothromb Time International Ratio 1.2 Blood Urea Nitrogen 16 Creatinine 0.54 Random Glucose 113 Calcium Level 7.5 Sodium Level 139 Potassium Level 3.8 Chloride Level 107 Carbon Dioxide Level 26.3 Anion Gap 6 Estimat Glomerular Filtration Rate 110 Date/Time Source Procedure Growth Status 04/28/17 13:10 Blood Peripheral Aerobic Blood Culture - Preliminary NO GROWTH IN 1 DAY Resulted 04/28/17 13:10 Blood Peripheral Anaerobic Blood Culture - Preliminary NO GROWTH IN 1 DAY Resulted 04/28/17 12:38 Throat Group A Streptococcus Screen - Preliminary NO BETA STREPTOCOCCI ISOLATED AT 24 H... Resulted 04/28/17 12:20 Urine Catheterized Urine Urine Culture - Final 10-50,000 CFU/ML MIXED ERIC... Complete Result Diagram: 04/29/17 0555 04/29/17 0555 Imaging Last Impressions Chest X-Ray 04/28/17 1149 Signed Impressions: Service Date/Time: Friday, April 28, 2017 12:06 - CONCLUSION: Cavitary lesion in the posterior mid right hemithorax measuring up to 7.5 cm. This could represent lung abscess or empyema if the lesion is pleural-based. Since there was a cystic lesion in a similar location on the prior study I suspect this is a lung cyst in the right lower lobe which has become secondarily infected. Consider chest CT with IV contrast for further characterization. Damir Lunsford MD Chest CT 04/28/17 0000 Signed Impressions: Service Date/Time: Friday, April 28, 2017 14:24 - CONCLUSION: 1. CT confirms the presence of a 5.8 x 5.9 cm cavitary lesion in the posterior right perihilar distribution with an air-fluid level. 2. A thin-walled parenchymal cyst was identified in the same location on a plain film examination from 2014. 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 3. 5 mm pleural-based nodule anterolaterally in the right middle lobe is overtly benign. Left lung is clear. 4. 1.6 cm lamellated gallstone Amadou Payne MD Assessment and Plan Assessment and Plan R lung abscess dc meropenem start zosyn fu P clx results Discussed Condition With pt, @ b/s Apryl Eedn MD Apr 29, 2017 16:23
--- NOTE | 2017-04-29 16:45 | RADRPT ---
EXAM DATE/TIME: 04/29/2017 14:33 [facility] COMPARISON: No previous studies available for comparison. INDICATIONS : Right lung cyst SEDATION TIME: 20 minutes MEDICATION(S): 1.) 2 midazolam (Versed) IV 2.) 100 fentanyl (Sublimaze) IV DEVICE(S): 1.) 6 Fr Skater FLUID: Total volume of 30 cc of purulent fluid was removed. Fluid was sent for laboratory ordered studies. MEDICAL HISTORY : Gastroesophageal reflux disease. SURGICAL HISTORY : Appendectomy. Hysterectomy. ENCOUNTER: Initial ACUITY: 1 day PAIN SCORE: 0/10 LOCATION: Right chest PROCEDURE: 1.) Conscious sedation with continuous EKG and oximetry monitoring. 2.) EKG and oximetry remained stable throughout the procedure. PROCEDURE : CT guided right pulmonary cyst aspiration. The risks, benefits and alternatives to the procedure were explained and verbal and written consent w as obtained. Using automated exposure control and adjustment of the mA and/or kV according to patien t size, radiation dose was kept as low as reasonably achievable to obtain optimal diagnostic quality images. The site was prepped in sterile fashion. Full sterile technique was used, including cap, ma sk, sterile gloves and gown and a large sterile sheet. Hand hygiene and 2% chlorhexidine and/or beta dine/alcohol prep was utilized per protocol for cutaneous antisepsis. The skin and subcutaneous tiss ues were infiltrated with local anesthetic solution. DICOM format image data is available electronic ally for review and comparison. A 6 [place] skater needle was advanced into the pulmonary parenchymal cyst. A total of 30 cc of purule nt fluid was aspirated. 20 cc was sent off for bacterial, fungal and AFB culture and stain. Tube was removed. Postprocedural CT showed partial collapse of the cyst with a small regional pneumothorax. CONCLUSION: Uncomplicated right pulmonary parenchymal cyst aspiration as above. Amadou Payne MD on April 29, 2017 at 16:40 Board Certified Radiologist. This report was verified electronically.
--- NOTE | 2017-04-29 17:13 | HHI.PR ---
Subjective Remarks NO SOB AT REST Objective GENERAL: SKIN: Warm and dry. HEAD: Atraumatic. Normocephalic. EYES: Pupils equal and round. No scleral icterus. No injection or drainage. ENT: No nasal bleeding or discharge. Mucous membranes pink and moist. NECK: Trachea midline. No JVD. CARDIOVASCULAR: Regular rate and rhythm. RESPIRATORY: No accessory muscle use. Clear to auscultation. Breath sounds equal bilaterally. GASTROINTESTINAL: Abdomen soft, non-tender, nondistended. Hepatic and splenic margins not palpable. MUSCULOSKELETAL: Extremities without clubbing, cyanosis, or edema. No obvious deformities. NEUROLOGICAL: Awake and alert. No obvious cranial nerve deficits. Motor grossly within normal limits. Five out of 5 muscle strength in the arms and legs. Normal speech. PSYCHIATRIC: Appropriate mood and affect; insight and judgment normal. Vital Signs Date Time Temp Pulse Resp B/P (MAP) Pulse Ox O2 Delivery O2 Flow Rate FiO2 04/29/17 16:30 80 20 107/69 (82) 94 04/29/17 16:00 82 20 129/56 (80) 94 04/29/17 15:30 87 20 139/62 (87) 94 04/29/17 15:15 Nasal Cannula 3.00 04/29/17 15:15 98.7 85 20 118/52 (74) 90 04/29/17 11:25 100.2 84 22 158/68 (98) 95 04/29/17 08:00 97.2 75 18 102/51 (68) 94 04/29/17 07:37 96 21 04/29/17 05:17 85 04/29/17 04:00 98.0 78 20 113/52 (72) 95 04/29/17 00:00 98.4 75 20 123/59 (80) 94 04/29/17 00:00 98.4 75 20 123/59 (80) 94 04/28/17 20:00 100.0 90 20 104/51 (68) 98 04/28/17 20:00 100.0 90 20 104/51 (68) 93 04/28/17 19:13 93 21 04/28/17 18:01 100.4 87 19 121/61 (81) 95 04/28/17 17:30 89 16 132/51 (78) 93 I/O 2/14/18 2/14/04/28/17 04/29/17 04/29/17 04/29/17 07:00 15:00 23:00 07:00 15:00 23:00 Intake Total 1100 ml 250 ml 1114 ml 400 ml Balance 1100 ml 250 ml 1114 ml 400 ml Intake Oral 240 ml 400 ml IV Total 1100 ml 250 ml 874 ml # Voids 2 1 # Bowel Movements 0 Result Diagram: 04/29/17 0555 04/29/17 0555 Assessment and Plan Assessment and Plan CAVITARY LESION RUL COPD PLAN TO [facility] FOR DRAINAGE ANTIBX PER Karen Werner MD Apr 29, 2017 17:13
[2017-04-29] MEDS: PIPERACIL-TAZO 4.5 GM PREMIX 100 ML IV SCH ×2 (18:14→22:43)
[2017-04-29] MEDS: ESTRADIOL 0.1 MG/GM VAG CREAM 42.5 GM VAGINAL SCH (21:00)
[2017-04-29] MEDS: MONTELUKAST SODIUM 10 MG TAB PO SCH (21:25)
[2017-04-29] MEDS: SERTRALINE HCL 50 MG TAB PO SCH (21:25)
[2017-04-30] VITALS (8 sets, daily range): BP systolic 108–139; BP diastolic 57–67; PULSE 57–86; RESP 18–20; TEMP 97.3–98.2; O2SAT 94–99
[2017-04-30] MEDS: SODIUM CHLOR 0.9% 1000 ML INJ 1,000 ML IV SCH
[2017-04-30] MEDS: ACETAMINOPHEN 325 MG TAB PO PRN ×2 (02:42→14:57)
[2017-04-30] MEDS: PIPERACIL-TAZO 4.5 GM PREMIX 100 ML IV SCH ×4 (04:59→23:16)
--- NOTE | 2017-04-30 06:57 | RADRPT ---
EXAM DATE/TIME: 04/30/2017 06:32 [facility] COMPARISON: CHEST PA & LAT, April 28, 2017, 12:06. INDICATIONS : Cough, evaluate pneumothorax MEDICAL HISTORY : Hypertension. Gastroesophageal reflux disease. sepsis, lung abcess, asthma SURGICAL HISTORY : Appendectomy. Hysterectomy. AV shunt ENCOUNTER: Subsequent ACUITY: 3 days PAIN SCORE: 2/10 LOCATION: Bilateral chest FINDINGS: Previously seen cavitary lesion right midlung is again identified appear smaller measures 3.3 cm in t ransverse diameter, and measures almost 6.6 cm previously. No definite pneumothorax is seen for techn ique. The rest of the examination has not significantly changed. CONCLUSION: Previously seen right midlung cavitary lesion is smaller. Augusto Combs MD on April 30, 2017 at 6:55 Board Certified Radiologist. This report was verified electronically.
[2017-04-30] MEDS: RESP: ALBUTEROL 2.5 MG/IPRATROPIUM 0.5 MG NEB (SCH) NEB ×3 (07:50→19:46)
[2017-04-30] MEDS: HYDROCHLOROTHIAZIDE 12.5 MG CAP PO SCH (09:45)
[2017-04-30] MEDS: FAMOTIDINE 20 MG TAB PO SCH ×2 (09:45→20:42)
[2017-04-30] MEDS: PRIMIDONE 50 MG TAB PO SCH (09:45)
[2017-04-30] MEDS: MULTIVITAMINS/MINERALS THERAPEUTIC TAB PO SCH ×2 (09:45→20:42)
[2017-04-30] MEDS: VALSARTAN 80 MG TAB PO SCH (09:45)
[2017-04-30] MEDS: predniSONE 5 MG TAB PO SCH (09:45)
[2017-04-30] MEDS: CHOLECALCIFEROL (VIT D3) 1000 UNIT TAB PO SCH (09:45)
--- NOTE | 2017-04-30 12:58 | HHI.PR ---
Subjective Remarks Follow-up right lung abscess 04/30/17-patient seen and examined, reports some improvement of shortness of breath. She had some episode of hemoptysis postprocedure 2 hours overnight however resolved this morning. currently afebrile. Objective Vitals Vital Signs Date Time Temp Pulse Resp B/P (MAP) Pulse Ox O2 Delivery O2 Flow Rate FiO2 04/30/17 12:00 97.8 64 20 112/57 (75) 95 04/30/17 08:00 57 04/30/17 08:00 97.8 68 19 132/60 (84) 98 04/30/17 07:52 98 Nasal Cannula 2.00 04/30/17 04:00 Room Air 04/30/17 04:00 86 04/30/17 04:00 97.3 63 18 120/58 (78) 99 04/30/17 00:00 62 04/30/17 00:00 98.2 67 18 108/67 (81) 98 04/30/17 00:00 Room Air 04/29/17 20:00 71 04/29/17 20:00 97.9 74 18 120/56 (77) 94 04/29/17 20:00 Room Air 04/29/17 19:16 94 21 04/29/17 16:59 97.6 70 18 116/71 (86) 95 04/29/17 16:30 80 20 107/69 (82) 94 04/29/17 16:00 82 20 129/56 (80) 94 04/29/17 15:30 87 20 139/62 (87) 94 04/29/17 15:15 Nasal Cannula 3.00 04/29/17 15:15 98.7 85 20 118/52 (74) 90 I/O 04/29/17 04/29/17 04/29/17 04/30/17 04/30/17 04/30/17 07:00 15:00 23:00 07:00 15:00 23:00 Intake Total 1114 ml 1400 ml 100 ml Balance 1114 ml 1400 ml 100 ml Intake Oral 240 ml 400 ml IV Total 874 ml 1000 ml 100 ml # Voids 2 1 2 # Bowel Movements 0 Result Diagram: 04/29/17 0555 04/29/17 0555 Imaging Last Impressions Chest X-Ray 04/30/17 0000 Signed Impressions: Service Date/Time: Sunday, April 30, 2017 06:32 - CONCLUSION: Previously seen right midlung cavitary lesion is smaller. Augusto Combs MD Needle Aspiration CT 04/29/17 1424 Signed Impressions: Service Date/Time: April 14:33 - CONCLUSION: Uncomplicated right pulmonary parenchymal cyst aspiration as above. Amadou Payne MD Chest CT 04/28/17 0000 Signed Impressions: Service Date/Time: Friday, April 28, 2017 14:24 - CONCLUSION: 1. CT confirms the presence of a 5.8 x 5.9 cm cavitary lesion in the posterior right perihilar distribution with an air-fluid level. 2. A thin-walled parenchymal cyst was identified in the same location on a plain film examination from 2014. 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 3. 5 mm pleural-based nodule anterolaterally in the right middle lobe is overtly benign. Left lung is clear. 4. 1.6 cm lamellated gallstone Amadou Payne MD Objective Remarks GENERAL: NAD SKIN: Warm and dry. HEAD: Normocephalic. EYES: No scleral icterus. No injection or drainage. NECK: Supple, trachea midline. No JVD or lymphadenopathy. CARDIOVASCULAR: Regular rate and rhythm without murmurs, gallops, or rubs. RESPIRATORY: Breath sounds decrease R>L . No accessory muscle use. GASTROINTESTINAL: Abdomen soft, non-tender, nondistended. MUSCULOSKELETAL: No cyanosis, or edema. BACK: Nontender without obvious deformity. No CVA tenderness. A/P Problem List: (1) Pulmonary abscess ICD Code: J85.2 - Abscess of lung without pneumonia Status: Acute (2) Sepsis ICD Code: A41.9 - Sepsis, unspecified organism Status: Acute (3) UTI (urinary tract infection) ICD Code: N39.0 - Urinary tract infection, site not specified Status: Acute (4) Essential tremor ICD Code: G25.0 - Essential tremor Status: Chronic (5) Temporal arteritis ICD Code: M31.6 - Temporal arteritis Status: Chronic (6) Hypertension ICD Code: I10 - Hypertension Status: Chronic (7) Asthma ICD Code: J45.909 - Asthma Status: Chronic Assessment and Plan 76-year-old female with Sepsis Secondary to pulmonary abscess Currently on Zosyn pending culture report Pulmonary abscess Status post I&D by interventional radiology pending culture reports Currently on Zosyn per ID UTI Continue Zosyn pending urine culture Essential tremor, hypertension and other chronic medical conditions Continue with outpatient medications DVT prophylaxis: Bilateral SCDs Problem Qualifiers (1) Pulmonary abscess: Qualified Codes: J85.1 - Abscess of lung with pneumonia (2) Sepsis: Qualified Codes: A41.9 - Sepsis, unspecified organism (3) UTI (urinary tract infection): Qualified Codes: N30.00 - Acute cystitis without hematuria Zachary Fontanez MD Apr 30, 2017 12:58
--- NOTE | 2017-04-30 15:19 | HHI.IDPN ---
Subjective Subjective Remarks feeling better + mild hemoptyssi, post precedural No fever Antibiotics zosyn Allergies: Coded Allergies: Sulfa (Sulfonamide Antibiotics) (Verified Allergy, Unknown, 04/28/17) Objective . Vital Signs Date Time Temp Pulse Resp B/P (MAP) Pulse Ox O2 Delivery O2 Flow Rate FiO2 04/30/17 12:00 65 04/30/17 12:00 97.8 64 20 112/57 (75) 95 04/30/17 08:00 57 04/30/17 08:00 Room Air 04/30/17 08:00 97.8 68 19 132/60 (84) 98 04/30/17 07:52 98 Nasal Cannula 2.00 04/30/17 04:00 Room Air 04/30/17 04:00 86 04/30/17 04:00 97.3 63 18 120/58 (78) 99 04/30/17 00:00 62 04/30/17 00:00 98.2 67 18 108/67 (81) 98 04/30/17 00:00 Room Air 04/29/17 20:00 71 04/29/17 20:00 97.9 74 18 120/56 (77) 94 04/29/17 20:00 Room Air 04/29/17 19:16 94 21 04/29/17 16:59 97.6 70 18 116/71 (86) 95 04/29/17 16:30 80 20 107/69 (82) 94 04/29/17 16:00 82 20 129/56 (80) 94 04/29/17 15:30 87 20 139/62 (87) 94 04/29/17 15:15 Nasal Cannula 3.00 04/29/17 15:15 98.7 85 20 118/52 (74) 90 . Laboratory Tests Test 04/29/17 05:55 White Blood Count 10.5 TH/MM3 Red Blood Count 3.09 MIL/MM3 Hemoglobin 8.8 GM/DL Hematocrit 26.5 % Mean Corpuscular Volume 85.6 FL Mean Corpuscular Hemoglobin 28.4 PG Mean Corpuscular Hemoglobin Concent 33.2 % Red Cell Distribution Width 13.4 % Platelet Count 213 TH/MM3 Mean Platelet Volume 7.8 FL Neutrophils (%) (Auto) 80.2 % Lymphocytes (%) (Auto) 8.8 % Monocytes (%) (Auto) 10.1 % Eosinophils (%) (Auto) 0.7 % Basophils (%) (Auto) 0.2 % Neutrophils # (Auto) 8.4 TH/MM3 Lymphocytes # (Auto) 0.9 TH/MM3 Monocytes # (Auto) 1.1 TH/MM3 Eosinophils # (Auto) 0.1 TH/MM3 Basophils # (Auto) 0.0 TH/MM3 CBC Comment DIFF FINAL Differential Comment Laboratory Tests Test 04/29/17 05:55 Blood Urea Nitrogen 16 MG/DL Creatinine 0.54 MG/DL Random Glucose 113 MG/DL Calcium Level 7.5 MG/DL Sodium Level 139 MEQ/L Potassium Level 3.8 MEQ/L Chloride Level 107 MEQ/L Carbon Dioxide Level 26.3 MEQ/L Anion Gap 6 MEQ/L Estimat Glomerular Filtration Rate 110 ML/MIN Microbiology Date/Time Source Procedure Growth Status 04/28/17 13:10 Blood Peripheral Aerobic Blood Culture - Preliminary NO GROWTH IN 2 DAYS Resulted 04/28/17 13:10 Blood Peripheral Anaerobic Blood Culture - Preliminary NO GROWTH IN 2 DAYS Resulted 04/28/17 12:55 Blood Peripheral Aerobic Blood Culture - Preliminary NO GROWTH IN 2 DAYS Resulted 04/28/17 12:55 Blood Peripheral Anaerobic Blood Culture - Preliminary NO GROWTH IN 2 DAYS Resulted 04/28/17 12:38 Throat Group A Streptococcus Screen - Final NO GP A BETA STREP ISOLATED. Complete 04/28/17 12:38 Nasal Washing Influenza Types A,B Antigen (SRAVAN) - Final NEGATIVE FOR FLU A AND B ANTIGEN.... Complete 04/28/17 12:38 Throat Group A Streptococcus Screen (SRAVAN) - Final Complete 04/28/17 12:20 Urine Catheterized Urine Urine Culture - Final 10-50,000 CFU/ML MIXED ERIC... Complete 04/29/17 14:40 Abscess Lung Fungal Smear - Final NO FUNGAL ELEMENTS SEEN. Resulted 04/29/17 14:40 Abscess Lung Fungal Culture Pending Resulted 04/29/17 14:40 Abscess Lung Acid Fast Stain Pending Received 04/29/17 14:40 Abscess Lung Mycobacterial Culture Pending Received 04/29/17 14:40 Abscess Lung Gram Stain - Final Resulted 04/29/17 14:40 Abscess Lung Wound Culture - Preliminary NO GROWTH IN 24 HOURS. Resulted Imaging Last Impressions Chest X-Ray 04/30/17 0000 Signed Impressions: Service Date/Time: Sunday, April 30, 2017 06:32 - CONCLUSION: Previously seen right midlung cavitary lesion is smaller. KNicole Combs MD Needle Aspiration CT 04/29/17 1424 Signed Impressions: Service Date/Time: April 14:33 - CONCLUSION: Uncomplicated right pulmonary parenchymal cyst aspiration as above. Amadou Payne MD Chest CT 04/28/17 0000 Signed Impressions: Service Date/Time: Friday, April 28, 2017 14:24 - CONCLUSION: 1. CT confirms the presence of a 5.8 x 5.9 cm cavitary lesion in the posterior right perihilar distribution with an air-fluid level. 2. A thin-walled parenchymal cyst was identified in the same location on a plain film examination from 2014. 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 3. 5 mm pleural-based nodule anterolaterally in the right middle lobe is overtly benign. Left lung is clear. 4. 1.6 cm lamellated gallstone Amadou Payne MD Physical Exam CONSTITUTIONAL/GENERAL: This is an obese elderly patient, in no apparent distress. TUBES/LINES/DRAINS: SKIN: No jaundice, rashes, or lesions. . Skin temperature appropriate. Not diaphoretic. CARDIOVASCULAR: Regular rate and rhythm without murmurs, gallops, or rubs. No JVD. Peripheral pulses symmetric. RESPIRATORY/CHEST: Symmetric, unlabored respirations. Clear to auscultation L. R lung field with few crackes posteriorly Breath sounds equal bilaterally. GASTROINTESTINAL: Abdomen soft, non-tender, nondistended. No hepato-splenomegaly , or palpable masses. No guarding. Bowel sounds present. MUSCULOSKELETAL: Extremities without clubbing, cyanosis, or edema. No joint tenderness or effusion noted. No calf tenderness. No mottling or clubbing. NEUROLOGICAL: Awake and alert. Motor and sensory grossly within normal limits. Follows commands. Cognitively sharp. Moves all extremities. Assessment & Plan Remarks R lung abscess, clx negative with prior abx use (4 days) cont zosyn fu P clx results Problems tolerating abx earlier (amox, azithro - GI intolerance) cont zosyn fu clx anticipate transition to oral abx per clx results I migth to use clindamycin in this case 2/2 extreme intolerance. Will try in pt first Meek,Apryl A. MD Apr 30, 2017 15:19
--- NOTE | 2017-04-30 19:26 | HHI.PR ---
Subjective Remarks NO SOB AT REST FLUID ASPIRATED 33 CC CULTURE NEGATIVE Objective Vital Signs Date Time Temp Pulse Resp B/P (MAP) Pulse Ox O2 Delivery O2 Flow Rate FiO2 04/30/17 16:00 70 04/30/17 16:00 97.5 66 18 139/63 (88) 95 04/30/17 12:00 65 04/30/17 12:00 97.8 64 20 112/57 (75) 95 04/30/17 08:00 57 04/30/17 08:00 Room Air 04/30/17 08:00 97.8 68 19 132/60 (84) 98 04/30/17 07:52 98 Nasal Cannula 2.00 04/30/17 04:00 Room Air 04/30/17 04:00 86 04/30/17 04:00 97.3 63 18 120/58 (78) 99 04/30/17 00:00 62 04/30/17 00:00 98.2 67 18 108/67 (81) 98 04/30/17 00:00 Room Air 04/29/17 20:00 71 04/29/17 20:00 97.9 74 18 120/56 (77) 94 04/29/17 20:00 Room Air I/O 04/29/17 04/29/17 04/29/17 04/30/17 04/30/17 04/30/17 06:59 14:59 22:59 06:59 14:59 22:59 Intake Total 1114 ml 400 ml 1100 ml 360 ml Balance 1114 ml 400 ml 1100 ml 360 ml Intake Oral 240 ml 400 ml 360 ml IV Total 874 ml 1100 ml # Voids 2 1 2 6 # Bowel Movements 0 1 Result Diagram: 04/29/17 0555 04/29/17 0555 Objective Remarks GENERAL: SKIN: Warm and dry. HEAD: Atraumatic. Normocephalic. EYES: Pupils equal and round. No scleral icterus. No injection or drainage. ENT: No nasal bleeding or discharge. Mucous membranes pink and moist. NECK: Trachea midline. No JVD. CARDIOVASCULAR: Regular rate and rhythm. RESPIRATORY: No accessory muscle use. Clear to auscultation. Breath sounds equal bilaterally. GASTROINTESTINAL: Abdomen soft, non-tender, nondistended. Hepatic and splenic margins not palpable. MUSCULOSKELETAL: Extremities without clubbing, cyanosis, or edema. No obvious deformities. NEUROLOGICAL: Awake and alert. No obvious cranial nerve deficits. Motor grossly within normal limits. Five out of 5 muscle strength in the arms and legs. Normal speech. PSYCHIATRIC: Appropriate mood and affect; insight and judgment normal. Assessment and Plan Assessment and Plan CAVITARY LESION RUL COPD ASPIRATE CULTURE NEGATIVE PLAN ANTIBX PER ID INCREASE ACTIVITY Karen Jones MD Apr 30, 2017 19:25
[2017-04-30] MEDS: SERTRALINE HCL 50 MG TAB PO SCH (20:42)
[2017-04-30] MEDS: MONTELUKAST SODIUM 10 MG TAB PO SCH (20:42)
[2017-04-30] MEDS: ESTRADIOL 0.1 MG/GM VAG CREAM 42.5 GM VAGINAL SCH (20:43)
[2017-05-01] VITALS (8 sets, daily range): BP systolic 139–156; BP diastolic 64–72; PULSE 62–70; RESP 16–18; TEMP 97.3–98.1; O2SAT 96–99
[2017-05-01] MEDS: PIPERACIL-TAZO 4.5 GM PREMIX 100 ML IV SCH ×4 (05:35→21:58)
[2017-05-01] MEDS: ACETAMINOPHEN 325 MG TAB PO PRN ×3 (05:35→23:56)
[2017-05-01 06:06] LABS: AUTOMATED NEUTROPHIL # 5.3 TH/MM3 (1.8-7.7); BASOPHIL % 0.5 % (0.0-2.0); EOSINOPHIL # 0.3 TH/MM3 (0-0.4); EOSINOPHIL % 4.2 % (0.0-4.0); HEMATOCRIT 28.2 % (35.0-46.0); HEMOGLOBIN 9.6 GM/DL (11.6-15.3); LYMPH % 17.2 % (9.0-44.0); LYMPHOCYTE # 1.3 TH/MM3 (1.0-4.8); MEAN CELL VOLUME 85.8 FL (80.0-100.0); MEAN CORPUSCULAR HEMOGLOBIN 29.2 PG (27.0-34.0); MEAN PLATELET VOLUME 8.1 FL (7.0-11.0); MONO % 9.5 % (0.0-8.0); MONOCYTE # 0.7 TH/MM3 (0-0.9); NEUT % 68.6 % (16.0-70.0); PLATELET COUNT 251 TH/MM3 (150-450); RED BLOOD COUNT 3.28 MIL/MM3 (4.00-5.30); RED CELL DISTRIBUTION WIDTH 13.9 % (11.6-17.2); WHITE BLOOD COUNT 7.8 TH/MM3 (4.0-11.0)
[2017-05-01 06:22] LABS: BICARBONATE 31.3 MEQ/L (21.0-32.0); CALCIUM 8.7 MG/DL (8.5-10.1); CREATININE 0.67 MG/DL (0.50-1.00)
[2017-05-01] MEDS: RESP: ALBUTEROL 2.5 MG/IPRATROPIUM 0.5 MG NEB (SCH) NEB ×3 (07:38→19:08)
[2017-05-01] MEDS: HYDROCHLOROTHIAZIDE 12.5 MG CAP PO SCH (10:29)
[2017-05-01] MEDS: VALSARTAN 80 MG TAB PO SCH (10:29)
[2017-05-01] MEDS: FAMOTIDINE 20 MG TAB PO SCH ×2 (10:29→21:51)
[2017-05-01] MEDS: PRIMIDONE 50 MG TAB PO SCH (10:29)
[2017-05-01] MEDS: predniSONE 5 MG TAB PO SCH (10:29)
[2017-05-01] MEDS: CHOLECALCIFEROL (VIT D3) 1000 UNIT TAB PO SCH (10:29)
[2017-05-01] MEDS: MULTIVITAMINS/MINERALS THERAPEUTIC TAB PO SCH ×2 (10:31→21:51)
--- NOTE | 2017-05-01 11:54 | HHI.PR ---
Subjective Remarks Follow-up right lung abscess 04/30/17-patient seen and examined, reports some improvement of shortness of breath. She had some episode of hemoptysis postprocedure 2 hours overnight however resolved this morning. currently afebrile. 05/01/17-patient seen and examined, Afebrile, No SOB. Lung abscess culture NTD Objective Vitals Vital Signs Date Time Temp Pulse Resp B/P (MAP) Pulse Ox O2 Delivery O2 Flow Rate FiO2 05/01/17 08:00 97.3 65 18 147/67 (93) 96 05/01/17 04:00 97.9 62 16 156/72 (100) 98 05/01/17 00:00 97.6 70 17 139/64 (89) 97 04/30/17 20:00 97.8 69 18 129/61 (83) 94 04/30/17 19:47 97 Nasal Cannula 04/30/17 16:00 70 04/30/17 16:00 97.5 66 18 139/63 (88) 95 04/30/17 12:00 65 04/30/17 12:00 97.8 64 20 112/57 (75) 95 I/O 04/30/17 04/30/17 04/30/17 05/01/17 05/01/17 05/01/17 07:00 15:00 23:00 07:00 15:00 23:00 Intake Total 100 ml 360 ml 260 ml Balance 100 ml 360 ml 260 ml Intake Oral 360 ml 60 ml IV Total 100 ml 200 ml # Voids 2 6 2 # Bowel Movements 1 Result Diagram: 05/01/17 0519 05/01/17 0519 Imaging Last Impressions Chest X-Ray 04/30/17 0000 Signed Impressions: Service Date/Time: Sunday, April 30, 2017 06:32 - CONCLUSION: Previously seen right midlung cavitary lesion is smaller. KNicole Combs MD Needle Aspiration CT 04/29/17 1424 Signed Impressions: Service Date/Time: April 14:33 - CONCLUSION: Uncomplicated right pulmonary parenchymal cyst aspiration as above. Amadou Payne MD Chest CT 04/28/17 0000 Signed Impressions: Service Date/Time: Friday, April 28, 2017 14:24 - CONCLUSION: 1. CT confirms the presence of a 5.8 x 5.9 cm cavitary lesion in the posterior right perihilar distribution with an air-fluid level. 2. A thin-walled parenchymal cyst was identified in the same location on a plain film examination from 2015. 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 3. 5 mm pleural-based nodule anterolaterally in the right middle lobe is overtly benign. Left lung is clear. 4. 1.6 cm lamellated gallstone Amadou Payne MD Objective Remarks GENERAL: NAD SKIN: Warm and dry. HEAD: Normocephalic. EYES: No scleral icterus. No injection or drainage. NECK: Supple, trachea midline. No JVD or lymphadenopathy. CARDIOVASCULAR: Regular rate and rhythm without murmurs, gallops, or rubs. RESPIRATORY: Breath sounds decrease R>L . No accessory muscle use. GASTROINTESTINAL: Abdomen soft, non-tender, nondistended. MUSCULOSKELETAL: No cyanosis, or edema. BACK: Nontender without obvious deformity. No CVA tenderness. A/P Problem List: (1) Pulmonary abscess ICD Code: J85.2 - Abscess of lung without pneumonia Status: Acute (2) Sepsis ICD Code: A41.9 - Sepsis, unspecified organism Status: Acute (3) UTI (urinary tract infection) ICD Code: N39.0 - Urinary tract infection, site not specified Status: Acute (4) Essential tremor ICD Code: G25.0 - Essential tremor Status: Chronic (5) Temporal arteritis ICD Code: M31.6 - Temporal arteritis Status: Chronic (6) Hypertension ICD Code: I10 - Hypertension Status: Chronic (7) Asthma ICD Code: J45.909 - Asthma Status: Chronic Assessment and Plan 76-year-old female with Sepsis Secondary to pulmonary abscess Currently on Zosyn pending cultures report Pulmonary abscess Status post I&D by interventional radiology pending culture reports which have remained NTD Currently on Zosyn per ID UTI Continue Zosyn pending urine culture Essential tremor, hypertension and other chronic medical conditions Continue with outpatient medications DVT prophylaxis: Bilateral SCDs Problem Qualifiers (1) Pulmonary abscess: Qualified Codes: J85.1 - Abscess of lung with pneumonia (2) Sepsis: Qualified Codes: A41.9 - Sepsis, unspecified organism (3) UTI (urinary tract infection): Qualified Codes: N30.00 - Acute cystitis without hematuria Zachary Fontanez MD May 01, 2017 11:54
[2017-05-01] MEDS ORDERED: LORazepam 2 MG TAB PO PRN (14:45)
[2017-05-01] MEDS ORDERED: FLUMAZENIL 0.5 MG/5 ML VIAL IV PUSH PRN (14:45)
[2017-05-01] MEDS ORDERED: LORazepam 2 MG/ML VIAL IV PUSH PRN ×4 (14:45)
[2017-05-01] MEDS ORDERED: LORazepam 1 MG TAB PO PRN (14:45)
[2017-05-01] MEDS: ESTRADIOL 0.1 MG/GM VAG CREAM 42.5 GM VAGINAL SCH (21:00)
[2017-05-01] MEDS: SERTRALINE HCL 50 MG TAB PO SCH (21:51)
[2017-05-01] MEDS: MONTELUKAST SODIUM 10 MG TAB PO SCH (21:51)
--- NOTE | 2017-05-01 23:45 | HHI.PR ---
Subjective Remarks NO SOB AT REST FLUID ASPIRATED 33 CC CULTURE NEGATIVE Objective Vital Signs Date Time Temp Pulse Resp B/P (MAP) Pulse Ox O2 Delivery O2 Flow Rate FiO2 05/01/17 20:00 97.8 70 16 146/65 (92) 97 05/01/17 19:08 99 21 05/01/17 16:00 Room Air 05/01/17 16:00 97.6 70 18 140/67 (91) 96 05/01/17 12:00 98.1 64 18 148/66 (93) 97 05/01/17 12:00 Room Air 05/01/17 08:00 97.3 65 18 147/67 (93) 96 05/01/17 08:00 Room Air 05/01/17 07:53 67 05/01/17 04:00 97.9 62 16 156/72 (100) 98 05/01/17 00:00 97.6 70 17 139/64 (89) 97 I/O 05/01/17 05/01/17 05/01/17 05/02/17 05/02/17 05/02/17 07:00 15:00 23:00 07:00 15:00 23:00 Intake Total 260 ml 720 ml Balance 260 ml 720 ml Intake Oral 60 ml 720 ml IV Total 200 ml # Voids 2 6 # Bowel Movements 3 Result Diagram: 05/01/1751805/01/17518 Objective Remarks GENERAL: SKIN: Warm and dry. HEAD: Atraumatic. Normocephalic. EYES: Pupils equal and round. No scleral icterus. No injection or drainage. ENT: No nasal bleeding or discharge. Mucous membranes pink and moist. NECK: Trachea midline. No JVD. CARDIOVASCULAR: Regular rate and rhythm. RESPIRATORY: No accessory muscle use. Clear to auscultation. Breath sounds equal bilaterally. GASTROINTESTINAL: Abdomen soft, non-tender, nondistended. Hepatic and splenic margins not palpable. MUSCULOSKELETAL: Extremities without clubbing, cyanosis, or edema. No obvious deformities. NEUROLOGICAL: Awake and alert. No obvious cranial nerve deficits. Motor grossly within normal limits. Five out of 5 muscle strength in the arms and legs. Normal speech. PSYCHIATRIC: Appropriate mood and affect; insight and judgment normal. Assessment and Plan Assessment and Plan CAVITARY LESION RUL COPD ASPIRATE CULTURE NEGATIVE PLAN ANTIBX PER ID INCREASE ACTIVITYF/U CXRAY Karen,Karen Wadie MD May 01, 2017 23:45
[2017-05-02] VITALS (8 sets, daily range): BP systolic 134–173; BP diastolic 62–76; PULSE 60–77; RESP 16–20; TEMP 97.4–98.5; O2SAT 93–97
[2017-05-02] MEDS: PIPERACIL-TAZO 4.5 GM PREMIX 100 ML IV SCH ×4 (04:57→23:24)
[2017-05-02] MEDS: HYDROCHLOROTHIAZIDE 12.5 MG CAP PO SCH (09:00)
[2017-05-02] MEDS: RESP: ALBUTEROL 2.5 MG/IPRATROPIUM 0.5 MG NEB (SCH) NEB ×3 (09:07→20:48)
[2017-05-02] MEDS ORDERED: ENALAPRILAT 2.5 MG/2 ML VIAL IV PUSH PRN (10:15)
--- NOTE | 2017-05-02 10:17 | HHI.PR ---
Subjective Remarks Follow-up right lung abscess 04/30/17-patient seen and examined, reports some improvement of shortness of breath. She had some episode of hemoptysis postprocedure 2 hours overnight however resolved this morning. currently afebrile. 05/01/17-patient seen and examined, Afebrile, No SOB. Lung abscess culture NTD 05/02/17-patient seen and examined, and she is breathing better and no complaint of chest pain or shortness of breath. Increase urinary frequency. Currently afebrile. Objective Vitals Vital Signs Date Time Temp Pulse Resp B/P (MAP) Pulse Ox O2 Delivery O2 Flow Rate FiO2 05/02/17 08:00 97.9 77 20 166/70 (102) 95 05/02/17 04:00 97.5 62 16 134/69 (90) 96 05/02/17 00:00 Room Air 05/02/17 00:00 97.4 60 16 168/75 (106) 96 05/01/17 20:00 Room Air 05/01/17 20:00 97.8 70 16 146/65 (92) 97 05/01/17 19:08 99 21 05/01/17 16:00 Room Air 05/01/17 16:00 97.6 70 18 140/67 (91) 96 05/01/17 12:00 98.1 64 18 148/66 (93) 97 05/01/17 12:00 Room Air I/O 05/01/17 05/01/17 05/01/17 05/02/17 05/02/17 05/02/17 07:00 15:00 23:00 07:00 15:00 23:00 Intake Total 260 ml 820 ml 219 ml Balance 260 ml 820 ml 219 ml Intake Oral 60 ml 720 ml 120 ml IV Total 200 ml 100 ml 99 ml # Voids 2 6 3 # Bowel Movements 3 1 Result Diagram: 05/01/1751805/01/17518 Objective Remarks GENERAL: NAD SKIN: Warm and dry. HEAD: Normocephalic. EYES: No scleral icterus. No injection or drainage. NECK: Supple, trachea midline. No JVD or lymphadenopathy. CARDIOVASCULAR: Regular rate and rhythm without murmurs, gallops, or rubs. RESPIRATORY: Breath sounds decrease R>L . No accessory muscle use. GASTROINTESTINAL: Abdomen soft, non-tender, nondistended. MUSCULOSKELETAL: No cyanosis, or edema. BACK: Nontender without obvious deformity. No CVA tenderness. A/P Problem List: (1) Pulmonary abscess ICD Code: J85.2 - Abscess of lung without pneumonia Status: Acute (2) Sepsis ICD Code: A41.9 - Sepsis, unspecified organism Status: Acute (3) UTI (urinary tract infection) ICD Code: N39.0 - Urinary tract infection, site not specified Status: Acute (4) Essential tremor ICD Code: G25.0 - Essential tremor Status: Chronic (5) Temporal arteritis ICD Code: M31.6 - Temporal arteritis Status: Chronic (6) Hypertension ICD Code: I10 - Hypertension Status: Chronic (7) Asthma ICD Code: J45.909 - Asthma Status: Chronic Assessment and Plan 76-year-old female with Sepsis-Resolved Secondary to pulmonary abscess Currently on Zosyn and culture NTD Pulmonary abscess Status post I&D by interventional radiology pending culture reports which have remained NTD Currently on Zosyn per ID UTI Urine Culture Negative Essential tremor, hypertension and other chronic medical conditions Continue with outpatient medications. Add Vasotec PRN DVT prophylaxis: Bilateral SCDs Problem Qualifiers (1) Pulmonary abscess: Qualified Codes: J85.1 - Abscess of lung with pneumonia (2) Sepsis: Qualified Codes: A41.9 - Sepsis, unspecified organism (3) UTI (urinary tract infection): Qualified Codes: N30.00 - Acute cystitis without hematuria Zahcary Fontanez MD May 02, 2017 10:17
[2017-05-02] MEDS: THIAMINE HCL 100 MG TAB PO SCH (12:26)
[2017-05-02] MEDS: MULTIVITAMINS/MINERALS THERAPEUTIC TAB PO SCH ×2 (12:26→19:49)
[2017-05-02] MEDS: CHOLECALCIFEROL (VIT D3) 1000 UNIT TAB PO SCH (12:26)
[2017-05-02] MEDS: PRIMIDONE 50 MG TAB PO SCH (12:26)
[2017-05-02] MEDS: predniSONE 5 MG TAB PO SCH (12:26)
[2017-05-02] MEDS: VALSARTAN 80 MG TAB PO SCH (12:27)
[2017-05-02] MEDS: FAMOTIDINE 20 MG TAB PO SCH ×2 (12:27→19:47)
[2017-05-02 14:28] LABS: BILIRUBIN, URINE NEG (NEG); BLOOD, URINE NEG (NEG); GLUCOSE,URINE NEG (NEG); KETONE, URINE NEG (NEG); NITRITE,URINE NEG (NEG); SQUAMOUS EPITHELIAL CELL URINE <1 /hpf (0-5); URINE COLOR YELLOW (YELLW/STRAW); URINE LEUKOCYTE ESTERASE NEG (NEG)
[2017-05-02] MEDS: ACETAMINOPHEN 325 MG TAB PO PRN (17:29)
[2017-05-02] MEDS: SERTRALINE HCL 50 MG TAB PO SCH (19:48)
[2017-05-02] MEDS: MONTELUKAST SODIUM 10 MG TAB PO SCH (19:49)
[2017-05-02] MEDS: ESTRADIOL 0.1 MG/GM VAG CREAM 42.5 GM VAGINAL SCH (19:49)
[2017-05-03 04:00] VITALS: BP 148/60; PULSE 67; RESP 18; TEMP 98.1; O2SAT 95
[2017-05-03] MEDS: PIPERACIL-TAZO 4.5 GM PREMIX 100 ML IV SCH ×2 (04:22→11:39)
[2017-05-03 08:11] VITALS: BP 169/77; PULSE 65; RESP 18; TEMP 97.9; O2SAT 97
[2017-05-03] MEDS: VALSARTAN 80 MG TAB PO SCH (09:00)
[2017-05-03] MEDS: HYDROCHLOROTHIAZIDE 12.5 MG CAP PO SCH (09:00)
[2017-05-03] MEDS: RESP: ALBUTEROL 2.5 MG/IPRATROPIUM 0.5 MG NEB (SCH) NEB ×2 (09:06→13:19)
--- NOTE | 2017-05-03 09:39 | HHI.PR ---
Subjective Remarks Follow-up right lung abscess 04/30/17-patient seen and examined, reports some improvement of shortness of breath. She had some episode of hemoptysis postprocedure 2 hours overnight however resolved this morning. currently afebrile. 05/01/17-patient seen and examined, Afebrile, No SOB. Lung abscess culture NTD 05/02/17-patient seen and examined, and she is breathing better and no complaint of chest pain or shortness of breath. Increase urinary frequency. Currently afebrile. 05/03/17-patient seen and examined, stable, no chest pain, shortness of breath, afebrile, would like to be discharged home. Objective Vitals Vital Signs Date Time Temp Pulse Resp B/P (MAP) Pulse Ox O2 Delivery O2 Flow Rate FiO2 05/03/17 08:11 97.9 65 18 169/77 (107) 97 05/03/17 04:00 Room Air 05/03/17 04:00 98.1 67 18 148/60 (89) 95 05/03/17 00:00 Room Air 05/02/17 23:21 98.5 70 18 148/71 (96) 93 05/02/17 20:55 96 05/02/17 20:00 98.1 66 20 158/62 (94) 97 05/02/17 20:00 Room Air 05/02/17 16:00 Room Air 05/02/17 16:00 98.2 70 20 173/75 (107) 96 05/02/17 12:00 Room Air 05/02/17 12:00 98.1 69 20 157/76 (103) 96 I/O 05/02/17 05/02/17 05/02/17 05/03/17 05/03/17 05/03/17 07:00 15:00 23:00 07:00 15:00 23:00 Intake Total 219 ml 720 ml 438 ml Output Total 800 ml Balance 219 ml 720 ml -362 ml Intake Oral 120 ml 720 ml 240 ml IV Total 99 ml 198 ml Output Urine Total 800 ml # Voids 3 6 # Bowel Movements 1 3 1 Result Diagram: 05/01/17 0519 05/01/17 0519 Imaging Last Impressions Chest X-Ray 04/30/17 0000 Signed Impressions: Service Date/Time: Sunday, April 30, 2017 06:32 - CONCLUSION: Previously seen right midlung cavitary lesion is smaller. Augusto Combs MD Needle Aspiration CT 04/29/17 1424 Signed Impressions: Service Date/Time: April 14:33 - CONCLUSION: Uncomplicated right pulmonary parenchymal cyst aspiration as above. Amadou Payne MD Chest CT 04/28/17 0000 Signed Impressions: Service Date/Time: Friday, April 28, 2017 14:24 - CONCLUSION: 1. CT confirms the presence of a 5.8 x 5.9 cm cavitary lesion in the posterior right perihilar distribution with an air-fluid level. 2. A thin-walled parenchymal cyst was identified in the same location on a plain film examination from 2014. 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 3. 5 mm pleural-based nodule anterolaterally in the right middle lobe is overtly benign. Left lung is clear. 4. 1.6 cm lamellated gallstone Amadou Payne MD Objective Remarks GENERAL: NAD SKIN: Warm and dry. HEAD: Normocephalic. EYES: No scleral icterus. No injection or drainage. NECK: Supple, trachea midline. No JVD or lymphadenopathy. CARDIOVASCULAR: Regular rate and rhythm without murmurs, gallops, or rubs. RESPIRATORY: Breath sounds decrease R>L . No accessory muscle use. GASTROINTESTINAL: Abdomen soft, non-tender, nondistended. MUSCULOSKELETAL: No cyanosis, or edema. BACK: Nontender without obvious deformity. No CVA tenderness. Procedures s/p Needle aspiration CT of lung abscess A/P Problem List: (1) Pulmonary abscess ICD Code: J85.2 - Abscess of lung without pneumonia Status: Acute (2) Sepsis ICD Code: A41.9 - Sepsis, unspecified organism Status: Acute (3) UTI (urinary tract infection) ICD Code: N39.0 - Urinary tract infection, site not specified Status: Acute (4) Essential tremor ICD Code: G25.0 - Essential tremor Status: Chronic (5) Temporal arteritis ICD Code: M31.6 - Temporal arteritis Status: Chronic (6) Hypertension ICD Code: I10 - Hypertension Status: Chronic (7) Asthma ICD Code: J45.909 - Asthma Status: Chronic Assessment and Plan 76-year-old female with Sepsis-Resolved Secondary to pulmonary abscess Currently on Zosyn and culture NTD Pulmonary abscess Status post I&D by interventional radiology pending culture reports which have remained NTD Currently on Zosyn per ID Awaiting for final recommendation from ID UTI Urine Culture Negative Essential tremor, hypertension and other chronic medical conditions Continue with outpatient medications. Add Vasotec PRN DVT prophylaxis: Bilateral SCDs Problem Qualifiers (1) Pulmonary abscess: Qualified Codes: J85.1 - Abscess of lung with pneumonia (2) Sepsis: Qualified Codes: A41.9 - Sepsis, unspecified organism (3) UTI (urinary tract infection): Qualified Codes: N30.00 - Acute cystitis without hematuria Zachary Fontanez MD May 03, 2017 09:39
[2017-05-03] MEDS: FAMOTIDINE 20 MG TAB PO SCH (09:46)
[2017-05-03] MEDS: predniSONE 5 MG TAB PO SCH (09:46)
[2017-05-03] MEDS: CHOLECALCIFEROL (VIT D3) 1000 UNIT TAB PO SCH (09:46)
[2017-05-03] MEDS: MULTIVITAMINS/MINERALS THERAPEUTIC TAB PO SCH (09:46)
[2017-05-03] MEDS: THIAMINE HCL 100 MG TAB PO SCH (09:46)
[2017-05-03] MEDS: PRIMIDONE 50 MG TAB PO SCH (09:46)
[2017-05-03] MEDS: ACETAMINOPHEN 325 MG TAB PO PRN (09:52)
[2017-05-03 12:11] VITALS: BP 149/67; PULSE 67; RESP 17; TEMP 98.1; O2SAT 93
--- NOTE | 2017-05-03 16:15 | HHI.IDPN ---
Subjective Subjective Remarks feeling better wants to go home No fever no GI complaints Antibiotics zosyn Allergies: Coded Allergies: Sulfa (Sulfonamide Antibiotics) (Verified Allergy, Unknown, 04/28/17) Objective . Vital Signs Date Time Temp Pulse Resp B/P (MAP) Pulse Ox O2 Delivery O2 Flow Rate FiO2 05/03/17 12:11 98.1 67 17 149/67 (94) 93 05/03/17 08:11 97.9 65 18 169/77 (107) 97 05/03/17 07:15 Room Air 05/03/17 04:00 Room Air 05/03/17 04:00 98.1 67 18 148/60 (89) 95 05/03/17 00:00 Room Air 05/02/17 23:21 98.5 70 18 148/71 (96) 93 05/02/17 20:55 96 05/02/17 20:00 98.1 66 20 158/62 (94) 97 05/02/17 20:00 Room Air Imaging Last Impressions Chest X-Ray 04/30/17 0000 Signed Impressions: Service Date/Time: Sunday, April 30, 2017 06:32 - CONCLUSION: Previously seen right midlung cavitary lesion is smaller. Augusto Combs MD Needle Aspiration CT 04/29/17 1424 Signed Impressions: Service Date/Time: April 14:33 - CONCLUSION: Uncomplicated right pulmonary parenchymal cyst aspiration as above. Amadou Payne MD Chest CT 04/28/17 0000 Signed Impressions: Service Date/Time: Friday, April 28, 2017 14:24 - CONCLUSION: 1. CT confirms the presence of a 5.8 x 5.9 cm cavitary lesion in the posterior right perihilar distribution with an air-fluid level. 2. A thin-walled parenchymal cyst was identified in the same location on a plain film examination from 2014. 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 3. 5 mm pleural-based nodule anterolaterally in the right middle lobe is overtly benign. Left lung is clear. 4. 1.6 cm lamellated gallstone Amadou Payne MD Physical Exam CONSTITUTIONAL/GENERAL: This is an obese elderly patient, in no apparent distress. TUBES/LINES/DRAINS: SKIN: No jaundice, rashes, or lesions. . Skin temperature appropriate. Not diaphoretic. CARDIOVASCULAR: Regular rate and rhythm without murmurs, gallops, or rubs. No JVD. Peripheral pulses symmetric. RESPIRATORY/CHEST: Symmetric, unlabored respirations. Clear to auscultation L. R lung field with few crackes posteriorly Breath sounds equal bilaterally. GASTROINTESTINAL: Abdomen soft, non-tender, nondistended. No hepato-splenomegaly , or palpable masses. No guarding. Bowel sounds present. MUSCULOSKELETAL: Extremities without clubbing, cyanosis, or edema. No joint tenderness or effusion noted. No calf tenderness. No mottling or clubbing. NEUROLOGICAL: Awake and alert. Motor and sensory grossly within normal limits. Follows commands. Cognitively sharp. Moves all extremities. Assessment & Plan Remarks R lung abscess, clx negative with prior abx use (4 days) cont zosyn fu P clx results Problems tolerating abx earlier (amox, azithro - GI intolerance) dc zosyn clindamycin x 3 more weeks f/u CT after 2-3 weeks and cont therapy if neededper clincial /radioolgical fiindings fu with Dr Karen ROY to dc form ID [facility] Dr Karen Eden,Apryl Howe MD May 03, 2017 16:15
[2017-05-03] MEDS ORDERED: CLIN300C5 PO (16:17)
--- NOTE | 2017-05-03 16:45 | HHI.PR ---
Subjective Remarks NO SOB AT REST FLUID ASPIRATED 33 CC CULTURE NEGATIVE Objective Vital Signs Date Time Temp Pulse Resp B/P (MAP) Pulse Ox O2 Delivery O2 Flow Rate FiO2 05/03/17 12:11 98.1 67 17 149/67 (94) 93 05/03/17 08:11 97.9 65 18 169/77 (107) 97 05/03/17 07:15 Room Air 05/03/17 04:00 Room Air 05/03/17 04:00 98.1 67 18 148/60 (89) 95 05/03/17 00:00 Room Air 05/02/17 23:21 98.5 70 18 148/71 (96) 93 05/02/17 20:55 96 05/02/17 20:00 98.1 66 20 158/62 (94) 97 05/02/17 20:00 Room Air I/O 05/02/17 05/02/17 05/02/17 05/03/17 05/03/17 05/03/17 07:00 15:00 23:00 07:00 15:00 23:00 Intake Total 219 ml 720 ml 438 ml Output Total 800 ml Balance 219 ml 720 ml -362 ml Intake Oral 120 ml 720 ml 240 ml IV Total 99 ml 198 ml Output Urine Total 800 ml # Voids 3 6 # Bowel Movements 1 3 1 Result Diagram: 05/01/1751805/01/17518 Objective Remarks GENERAL: SKIN: Warm and dry. HEAD: Atraumatic. Normocephalic. EYES: Pupils equal and round. No scleral icterus. No injection or drainage. ENT: No nasal bleeding or discharge. Mucous membranes pink and moist. NECK: Trachea midline. No JVD. CARDIOVASCULAR: Regular rate and rhythm. RESPIRATORY: No accessory muscle use. Clear to auscultation. Breath sounds equal bilaterally. GASTROINTESTINAL: Abdomen soft, non-tender, nondistended. Hepatic and splenic margins not palpable. MUSCULOSKELETAL: Extremities without clubbing, cyanosis, or edema. No obvious deformities. NEUROLOGICAL: Awake and alert. No obvious cranial nerve deficits. Motor grossly within normal limits. Five out of 5 muscle strength in the arms and legs. Normal speech. PSYCHIATRIC: Appropriate mood and affect; insight and judgment normal. Assessment and Plan Assessment and Plan CAVITARY LESION RUL COPD ASPIRATE CULTURE NEGATIVE PLAN ANTIBX PER ID INCREASE ACTIVITYF/U CXRAYOK FOR D/C ON PO MEDS OFFICE 3 WEEKS Karen Jones MD May 03, 2017 16:45
[2017-05-03] MEDS ORDERED: CLINDAMYCIN 150 MG CAP PO SCH (17:00)
--- NOTE | 2017-05-03 17:53 | HHI.DS ---
Discharge Summary Admission Date Apr 28, 2017 at 15:30 Discharge Date: May 03, 2017 Admitting Diagnosis Sepsis, Lung Abscess (1) Pulmonary abscess ICD Code: J85.2 - Abscess of lung without pneumonia Status: Acute (2) Sepsis ICD Code: A41.9 - Sepsis, unspecified organism Status: Acute (3) UTI (urinary tract infection) ICD Code: N39.0 - Urinary tract infection, site not specified Status: Acute (4) Essential tremor ICD Code: G25.0 - Essential tremor Status: Chronic (5) Temporal arteritis ICD Code: M31.6 - Temporal arteritis Status: Chronic (6) Hypertension ICD Code: I10 - Hypertension Status: Chronic (7) Asthma ICD Code: J45.909 - Asthma Status: Chronic Procedures s/p Needle aspiration CT of lung abscess Brief History - From Admission 76-year-old white female being admitted for this lung abscess. Patient was in her usual state of health until a few weeks ago when she began experiencing a decreased appetite. She developed intermittent nausea which then progressed to becoming almost constant with every meal over the past week. She did develop a productive cough with yellow sputum that started about a week ago. She was first diagnosed with having strep throat in the clinic and was put on amoxicillin but later had diarrhea and was switched over to azithromycin. However she reports having trouble keeping down all of her medications including the prescribed antibiotics due to persistently worsening nausea. Patient went to the urgent care this morning and was thus referred to the emergency department. Patient does report feeling weaker overall with chills. She denies having any carlos chest pain. Past medical history significant for temporal arteritis, patient is managed remotely by her string studies director in [place] who orders since standing orders of sed rates and adjusts her prednisone dosing from there. Patient has a history of macular degeneration. Patient says she has not taken her prednisone dose in many days and is concerned about this. Patient social history significant for smoking for about 40 years up until about 20 years ago. She denies drinking. Family history is significant for macular degeneration in her mother. CBC/BMP: 05/01/17 0519 05/01/17 0519 Significant Findings Laboratory Tests Test 05/01/17 05:19 05/02/17 14:05 Red Blood Count 3.28 MIL/MM3 (4.00-5.30) Hemoglobin 9.6 GM/DL (11.6-15.3) Hematocrit 28.2 % (35.0-46.0) Monocytes (%) (Auto) 9.5 % (0.0-8.0) Eosinophils (%) (Auto) 4.2 % (0.0-4.0) Estimat Glomerular Filtration Rate 86 ML/MIN (>89) Imaging Last Impressions Chest X-Ray 04/30/17 0000 Signed Impressions: Service Date/Time: Sunday, April 30, 2017 06:32 - CONCLUSION: Previously seen right midlung cavitary lesion is smaller. Augusto Combs MD Needle Aspiration CT 04/29/17 1424 Signed Impressions: Service Date/Time: April 14:33 - CONCLUSION: Uncomplicated right pulmonary parenchymal cyst aspiration as above. Amadou Payne MD Chest CT 04/28/17 0000 Signed Impressions: Service Date/Time: Friday, April 28, 2017 14:24 - CONCLUSION: 1. CT confirms the presence of a 5.8 x 5.9 cm cavitary lesion in the posterior right perihilar distribution with an air-fluid level. 2. A thin-walled parenchymal cyst was identified in the same location on a plain film examination from 2014. 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 3. 5 mm pleural-based nodule anterolaterally in the right middle lobe is overtly benign. Left lung is clear. 4. 1.6 cm lamellated gallstone Amadou Payne MD PE at Discharge GENERAL: NAD SKIN: Warm and dry. HEAD: Normocephalic. EYES: No scleral icterus. No injection or drainage. NECK: Supple, trachea midline. No JVD or lymphadenopathy. CARDIOVASCULAR: Regular rate and rhythm without murmurs, gallops, or rubs. RESPIRATORY: Breath sounds decrease R>L . No accessory muscle use. GASTROINTESTINAL: Abdomen soft, non-tender, nondistended. MUSCULOSKELETAL: No cyanosis, or edema. BACK: Nontender without obvious deformity. No CVA tenderness. Hospital Course While in the hospital, the patient was treated for: Sepsis-Resolved Secondary to pulmonary abscess Treated with Zosyn and culture NTD Pulmonary abscess Status post I&D by interventional radiology pending culture reports which have remained NTD Treated with Zosyn per ID, discharged home on Clindamycin UTI Urine Culture Negative Essential tremor, hypertension and other chronic medical conditions Continued with outpatient medications. Vasotec PRN DVT prophylaxis: Bilateral SCDs Pt Condition on Discharge: Good Discharge Disposition: Discharge Home Discharge Time: <= 30 minutes Discharge Instructions DIET: Follow Instructions for: Heart Healthy Diet Activities you can perform: Regular-No Restrictions Follow up Referrals: PCP Follow-up - 1 Week New Medications: Clindamycin (Clindamycin) 300 Mg Cap 300 MG PO Q6H for Infection for 21 Days, #84 CAP 0 Refills Continued Medications: Albuterol 6.7 GM Inh (Proventil Hfa 6.7 GM Inh) 90 Mcg/Act Aer 2 PUFF INH Q4-6H PRN for SHORTNESS OF BREATH, #1 INHALER 0 Refills Cholecalciferol (Vitamin D-1000) 1,000 Unit Tab 1000 UNITS PO DAILY for Nutritional Supplement, #1 BOTTLE 0 Refills Estradiol Vaginal (Estrace Vaginal) 0.01% Cream 1 APPL VAGINAL HS for Estrogen Supplements, #1 TUBE 0 Refills Loperamide (Imodium A-D) 2 Mg Capsule 2 MG PO DIRECTED PRN for DIARRHEA, CAP 0 Refills One capsule after each loose stool. Not to exceed 8 tablets per day. Montelukast (Singulair) 10 Mg Tab 10 MG PO HS, #30 TAB 0 Refills Multiple Vitamins W/ Minerals (Preservision Areds) 1 Tab 1 TAB PO BID for Nutritional Supplement, TAB 0 Refills Prednisone (Prednisone) 5 Mg Tab 5 MG PO DAILY, TAB 0 Refills Primidone (Primidone) 50 Mg Tab 50 MG PO DAILY for Control Seizures, #60 TAB 0 Refills Ranitidine (Zantac) 150 Mg Tab 150 MG PO DAILY for Reduce Stomach Acid, #30 TAB 0 Refills Sertraline (Zoloft) 50 Mg Tab 75 MG PO HS, #30 TAB 0 Refills Valsartan-Hydrochlorothiazide (Diovan Hct) 160-12.5 Mg Tab 1 TAB PO DAILY for Blood Pressure Management, #30 TAB 0 Refills Zachary Fontanez MD May 03, 2017 17:53
== END 2017-05-03 19:20 | disposition home or self-care (01) | DRG 871 ==
LOC: PHED 11:14 → PHEDA 15:30 → PH3A 17:23 → HRIP 04-29 11:28 → N04B 04-29 15:30 → N04A 04-29 16:59
PROVIDERS: ADMIT Hospitalist; ATTEND Hospitalist
PROC: 0B9K3ZX Drainage of Right Lung, Percutaneous Approach, Diagnostic (ICD-10-PCS; principal; 2017-04-29)
DX: A41.9 Sepsis, unspecified organism (principal); J85.2 Abscess of lung without pneumonia; M31.5 Giant cell arteritis with polymyalgia rheumatica; R04.2 Hemoptysis; N30.00 Acute cystitis without hematuria; M05.50 Rheumatoid polyneuropathy with rheumatoid arthritis of unspecified site; G25.0 Essential tremor; I10 Essential (primary) hypertension; J45.909 Unspecified asthma, uncomplicated; M54.5 Low back pain; K21.9 Gastro-esophageal reflux disease without esophagitis; R19.7 Diarrhea, unspecified; F32.9 Major depressive disorder, single episode, unspecified; H35.30 Unspecified macular degeneration; Z87.891 Personal history of nicotine dependence
CPT/HCPCS: 10022; 71045; 71046; 71260; 76937; 77012; 80048; 80053; 81001; 83605; 83690; 85025; 85610; 85652; 87015; 87040; 87070; 87081; 87086; 87102; 87116; 87205; 87206; 87804; 87880; 94640; 94664; 96365; 96367; 96375; 99152; 99153; C1729; J2185; J2250; J2405; J2543; J3010; J3370; J7030; J7050; J7512; Q9967

== ENCOUNTER 2017-05-06 15:20 | Emergency (ER) | payer MEDICARE ==
[~2017-05-06] VITALS: Ht 162.6 cm; Wt 80.0 kg
[~2017-05-06 15:20] MED LIST changes: +CLIN300C5 PO; +LOPE-1 PO; -MIRA3350 PO
[2017-05-06 15:21] VITALS: BP 146/66; PULSE 89; RESP 14; TEMP 96.8; O2SAT 96
[2017-05-06] MEDS ORDERED: IOHEXOL 350 MG/ML 10 ML VIAL (for RAD DIAG) IVCONTRAST ONE (15:21)
[2017-05-06 16:31] LABS: AUTOMATED NEUTROPHIL # 8.2 TH/MM3 (1.8-7.7); BASOPHIL % 0.3 % (0.0-2.0); EOSINOPHIL # 0.1 TH/MM3 (0-0.4); EOSINOPHIL % 1.3 % (0.0-4.0); HEMATOCRIT 36.9 % (35.0-46.0); HEMOGLOBIN 12.7 GM/DL (11.6-15.3); LYMPH % 15.9 % (9.0-44.0); LYMPHOCYTE # 1.7 TH/MM3 (1.0-4.8); MEAN CELL VOLUME 86.1 FL (80.0-100.0); MEAN CORPUSCULAR HEMOGLOBIN 29.5 PG (27.0-34.0); MEAN CORPUSCULAR HGB CONC 34.3 % (32.0-36.0); MEAN PLATELET VOLUME 7.5 FL (7.0-11.0); MONO % 5.9 % (0.0-8.0); MONOCYTE # 0.6 TH/MM3 (0-0.9); NEUT % 76.6 % (16.0-70.0); PLATELET COUNT 409 TH/MM3 (150-450); RED BLOOD COUNT 4.29 MIL/MM3 (4.00-5.30); RED CELL DISTRIBUTION WIDTH 14.7 % (11.6-17.2); WHITE BLOOD COUNT 10.7 TH/MM3 (4.0-11.0)
[2017-05-06 16:55] LABS: ALBUMIN 3.6 GM/DL (3.4-5.0); AST (GOT) 18 U/L (15-37); BICARBONATE 29.1 MEQ/L (21.0-32.0); BLOOD UREA NITROGEN 18 MG/DL (7-18); CALCIUM 9.6 MG/DL (8.5-10.1); CHLORIDE 104 MEQ/L (98-107); CREATININE 0.94 MG/DL (0.50-1.00); GLOMERULAR FILTRATION RATE 58 ML/MIN (>89); GLUCOSE,RANDOM 113 MG/DL (74-106); SODIUM (NA) 139 MEQ/L (136-145)
[2017-05-06 16:56] LABS: ALT (GPT) 30 U/L (10-53)
[2017-05-06 16:57] LABS: INTERNATIONAL NORMALIZED RATIO 1.1 RATIO; PROTHROMBIN TIME - PATIENT 10.8 SEC (9.8-11.6)
[2017-05-06 16:58] VITALS: BP 145/73; PULSE 70; RESP 18; O2SAT 96
[2017-05-06 16:58] LABS: ALKALINE PHOSPHATASE 86 U/L (45-117); TOTAL BILIRUBIN ADULT 0.3 MG/DL (0.2-1.0)
[2017-05-06] MEDS ORDERED: PANTOPRAZOLE SODIUM 40 MG VIAL IV PUSH ONE (17:00)
--- NOTE | 2017-05-06 17:41 | PD ---
HPI Chief Complaint: GI Complaint Time Seen by Provider: 16:44 Travel History International Travel<30 days: No Contact w/Intl Traveler<30days: No Traveled to known affect area: No History of Present Illness HPI 76-year-old female that presents to the ED for evaluation of black stools. Per patient she's had this for a couple of days. Per patient she notices when she was started antibiotics IV for her IS what she was admitted last week. She was released about 2 days ago. She states that she was released with clindamycin has been doing well since. She's been noticing that her black stools have not improved and she was concerned about this. She has a history of peptic ulcer disease but when she was younger. She takes ranitidine daily but this was apparently discontinued when she was admitted. She has not taken anything for this. She denies any weakness or paleness. She denies any redness. Per patient and her stools are darker. She denies any diarrhea. No urinary or bowel movement issues otherwise. No shortness of breath or chest pain. Has not seen anybody for this. Has had a colonoscopy in the past 2 years. No pain of any kind. PFSH Past Medical History Arthritis: No Asthma: Yes Autoimmune Disease: Yes (temporal arteritis) Depression: Yes Heart Rhythm Problems: No Cancer: No Cardiovascular Problems: Yes (htn on meds) High Cholesterol: No Chemotherapy: No Chest Pain: No Congestive Heart Failure: No COPD: No Cerebrovascular Accident: No Diabetes: No Diminished Hearing: No Endocrine: No Gastrointestinal Disorders: Yes (GERD) GERD: Yes Genitourinary: Yes Hiatal Hernia: No Hypertension: Yes Immune Disorder: Yes (POLYNEURALGIA RHEUMATICA) Kidney Stones: No Musculoskeletal: Yes (LOW BACK PAIN FROM PREVIOUS BROKEN PELVIS ) Neurologic: Yes (essential tremor) Psychiatric: No Reproductive: No Respiratory: Yes Migraines: No Radiation Therapy: No Renal Failure: No Seizures: No Sickle Cell Disease: No Sleep Apnea: No Thyroid Disease: No Ulcer: No Tetanus Vaccination: < 5 Years Influenza Vaccination: No ?: Not Past Surgical History Abdominal Surgery: Yes (APPENDECTOMY ) AICD: No Arteriovenous Shunt: Yes Cardiac Surgery: No Ear Surgery: No Endocrine Surgery: No Eye Surgery: No Genitourinary Surgery: No Gynecologic Surgery: Yes (1972 HYSTERECTOMY) Hysterectomy: Yes Insulin Pump: No Joint Replacement: No Pacemaker: No Thoracic Surgery: No Other Surgery: Yes Social History Alcohol Use: No Tobacco Use: No Substance Use: No Allergies-Medications (Allergen,Severity, Reaction): Coded Allergies: Sulfa (Sulfonamide Antibiotics) (Verified Allergy, Unknown, 05/06/17) Reported Meds & Prescriptions Reported Meds & Active Scripts Active Ranitidine (Ranitidine HCl) 150 Mg Tab 150 Mg PO BID Protonix (Pantoprazole Sodium) 40 Mg Tab 40 Mg PO DAILY Clindamycin (Clindamycin HCl) 300 Mg Cap 300 Mg PO Q6H 21 Days Reported Imodium A-D (Loperamide HCl) 2 Mg Capsule 2 Mg PO DIRECTED PRN One capsule after each loose stool. Not to exceed 8 tablets per day. Proventil Hfa 6.7 GM Inh (Albuterol Sulfate) 90 Mcg/Act Aer 2 Puff INH Q4-6H PRN Preservision Areds (Multiple Vitamins W/ Minerals) 1 Tab 1 Tab PO BID Zoloft (Sertraline HCl) 50 Mg Tab 75 Mg PO HS Primidone 50 Mg Tab 50 Mg PO DAILY Prednisone 5 Mg Tab 5 Mg PO DAILY Singulair (Montelukast Sodium) 10 Mg Tab 10 Mg PO HS Estrace Vaginal (Estradiol) 0.01% Cream 1 Appl VAGINAL HS Vitamin D-1000 (Cholecalciferol) 1,000 Unit Tab 1,000 Units PO DAILY Diovan Hct (Valsartan-Hydrochlorothiazide) 160-12.5 Mg Tab 1 Tab PO DAILY Review of Systems Except as stated in HPI: all other systems reviewed are Neg Physical Exam Narrative GENERAL: SKIN: Warm and dry. HEAD: Atraumatic. Normocephalic. EYES: Pupils equal and round. No scleral icterus. No injection or drainage. ENT: No nasal bleeding or discharge. Mucous membranes pink and moist. Tongue is midline. No uvula deviation. NECK: Trachea midline. No JVD. CARDIOVASCULAR: Regular rate and rhythm. No murmurs, S3, S4. RESPIRATORY: No accessory muscle use. Clear to auscultation. Breath sounds equal bilaterally. GASTROINTESTINAL: Abdomen soft, non-tender, nondistended. Hepatic and splenic margins not palpable. Rectal: Patient has old hemorrhoids noted on her rectum. Hemoccult was done and was positive. No active bleeding however. No red blood. MUSCULOSKELETAL: Extremities without clubbing, cyanosis, or edema. No obvious deformities. Full range of motion of the upper and lower extremities bilaterally. 2+ pulses bilaterally. NEUROLOGICAL: Awake and alert. No obvious cranial nerve deficits. Motor grossly within normal limits. Five out of 5 muscle strength in the arms and legs. Normal speech. PSYCHIATRIC: Appropriate mood and affect; insight and judgment normal. Data Data Last Documented VS Vital Signs Date Time Temp Pulse Resp B/P (MAP) Pulse Ox O2 Delivery O2 Flow Rate FiO2 05/06/17 19:23 71 16 174/78 (110) 98 Room Air 05/06/17 15:21 96.8 Orders Orders Complete Blood Count With Diff (05/06/17 15:50) Comprehensive Metabolic Panel (05/06/17 15:50) Prothrombin Time / Inr (Pt) (05/06/17 15:50) Act Partial Throm Time (Ptt) (05/06/17 15:50) Ecg Monitoring (05/06/17 15:50) Oximetry (05/06/17 15:50) Iv Access Insert/Monitor (05/06/17 15:50) Type And Screen (05/06/17 15:50) Pantoprazole Inj (Protonix Inj) (05/06/17 17:00) Ct Abd/Pel W Iv Contrast(Rout) (05/06/17 ) Iohexol 350 Inj (Omnipaque 350 Inj) (05/06/17 15:21) Ed Discharge Order (05/06/17 19:42) Labs Laboratory Tests Test 05/06/17 16:00 White Blood Count 10.7 TH/MM3 Red Blood Count 4.29 MIL/MM3 Hemoglobin 12.7 GM/DL Hematocrit 36.9 % Mean Corpuscular Volume 86.1 FL Mean Corpuscular Hemoglobin 29.5 PG Mean Corpuscular Hemoglobin Concent 34.3 % Red Cell Distribution Width 14.7 % Platelet Count 409 TH/MM3 Mean Platelet Volume 7.5 FL Neutrophils (%) (Auto) 76.6 % Lymphocytes (%) (Auto) 15.9 % Monocytes (%) (Auto) 5.9 % Eosinophils (%) (Auto) 1.3 % Basophils (%) (Auto) 0.3 % Neutrophils # (Auto) 8.2 TH/MM3 Lymphocytes # (Auto) 1.7 TH/MM3 Monocytes # (Auto) 0.6 TH/MM3 Eosinophils # (Auto) 0.1 TH/MM3 Basophils # (Auto) 0.0 TH/MM3 CBC Comment DIFF FINAL Differential Comment Prothrombin Time 10.8 SEC Prothromb Time International Ratio 1.1 RATIO Activated Partial Thromboplast Time 26.7 SEC Blood Urea Nitrogen 18 MG/DL Creatinine 0.94 MG/DL Random Glucose 113 MG/DL Total Protein 8.0 GM/DL Albumin 3.6 GM/DL Calcium Level 9.6 MG/DL Alkaline Phosphatase 86 U/L Aspartate Amino Transf (AST/SGOT) 18 U/L Alanine Aminotransferase (ALT/SGPT) 30 U/L Total Bilirubin 0.3 MG/DL Sodium Level 139 MEQ/L Potassium Level 4.6 MEQ/L Chloride Level 104 MEQ/L Carbon Dioxide Level 29.1 MEQ/L Anion Gap 6 MEQ/L Estimat Glomerular Filtration Rate 58 ML/MIN MDM Medical Decision Making Medical Screen Exam Complete: Yes Emergency Medical Condition: Yes Medical Record Reviewed: Yes Interpretation(s) CBC & BMP Diagram 05/06/17 16:00 Total Protein 8.0, Albumin 3.6, Calcium Level 9.6, Alkaline Phosphatase 86, Aspartate Amino Transf (AST/SGOT) 18, Alanine Aminotransferase (ALT/SGPT) 30, Total Bilirubin 0.3 CT negative Coags WNL Differential Diagnosis GI bleed versus black stools versus diarrhea versus diverticulitis versus reaction to medication versus anemia Narrative Course 76-year-old female that presents to the ED for evaluation of dark stools. Patient was properly examined and was found to have signs and symptoms consistent with appears to be possible dark stools. Hemoccult was done and was positive. Blood was noted in triage but does not show no sign of anemia or acute disease. She does not have any pain. She is currently taking antibiotics for an abscess to her lungs. Apparently the cultures from the abscesses have been all negative for bacteria. She continues to take the clindamycin. Question whether this is a reaction to the medications. Will start on protonix and CT scan ordered. CT showed negative for acute disease. Patient was reassured. The patient appears to be hemodynamically stable. We' ll start patient on Protonix and ranitidine and palpation to follow with GI doctor. See ED worsening symptoms. Follow with PCP. My attending Dr Madera agrees with discharge. [facility] Point of Care Internal Pos. & Neg. Controls: Passed Fecal Specimen Occult Blood: Positive Diagnosis Primary Impression: Dark stools Referrals: Bratu,Yanira S. MD Skyler,Ledbetter MD Patient Instructions: General Instructions Additional Instructions: Take meds as prescribed. Follow up with GI doctor. See ED if worst. Med/Other Pt SpecificInfo: Prescription(s) given Scripts Ranitidine (Ranitidine) 150 Mg Tab 150 MG PO BID for Heartburn Management, #60 TAB 0 Refills Prov: Rafael Madera MD 05/06/17 Pantoprazole (Protonix) 40 Mg Tab 40 MG PO DAILY for Reflux, #30 TAB 0 Refills Prov: Rafael Madera MD 05/06/17 Disposition: 01 DISCHARGE HOME Condition: Stable Gustavo Mishra May 06, 2017 17:41
[2017-05-06 19:05] VITALS: BP 157/75; PULSE 68; RESP 18; O2SAT 98
[2017-05-06 19:23] VITALS: BP 174/78; PULSE 71; RESP 16; O2SAT 98
--- NOTE | 2017-05-06 19:35 | RADRPT ---
EXAM DATE/TIME: 05/06/2017 18:54 [facility] COMPARISON: CT ABDOMEN & PELVIS W CONTRAST, March 08, 2014, 15:12. INDICATIONS : Black tarry stools IV CONTRAST: 75 cc Omnipaque 350 (iohexol) IV ORAL CONTRAST: No oral contrast ingested. RADIATION DOSE: 14.92 CTDIvol (mGy) MEDICAL HISTORY : Hypertension. SURGICAL HISTORY : Appendectomy. Hysterectomy. ENCOUNTER: Initial ACUITY: 1 day PAIN SCALE: 0/10 LOCATION: Abdomen TECHNIQUE: Volumetric scanning of the abdomen and pelvis was performed. Using automated exposure control and ad justment of the mA and/or kV according to patient size, radiation dose was kept as low as reasonably achievable to obtain optimal diagnostic quality images. DICOM format image data is available electro nically for review and comparison. FINDINGS: LOWER LUNGS: Minimal linear parenchymal opacities in the right lung base. LIVER: Homogeneous density without lesion. There is no dilation of the biliary tree. Multiple calcified gal lstones. Gallbladder is otherwise unremarkable by CT. SPLEEN: Normal size without lesion. PANCREAS: Within normal limits. KIDNEYS: Normal in size and shape. There is no mass, stone or hydronephrosis. ADRENAL GLANDS: Within normal limits. VASCULAR: Mild to moderate atherosclerotic calcifications without aneurysm. BOWEL/MESENTERY: The stomach, small bowel, and colon demonstrate no acute abnormality. Mild sigmoid and scattered col onic diverticuli without significant inflammatory change. There is no free intraperitoneal air or flu id. ABDOMINAL WALL: Within normal limits. RETROPERITONEUM: There is no lymphadenopathy. BLADDER: No wall thickening or mass. REPRODUCTIVE: Uterus is surgically absent. INGUINAL: There is no lymphadenopathy or hernia. MUSCULOSKELETAL: Bony remodeling in the inferior pubic rami and pubic symphysis consistent with previous trauma. Many us structures are otherwise intact without acute fracture. CONCLUSION: 1. No acute CT abnormality in the abdomen or pelvis. 2. Diverticulosis without evidence for diverticulitis. 3. Cholelithiasis 4. Post traumatic changes in the pelvis, as above. Jasvir Velázquez MD on May 06, 2017 at 19:29 Board Certified Radiologist. This report was verified electronically.
[2017-05-06] MEDS ORDERED: PROT40TA PO ×2 (19:43→19:45)
[2017-05-06] MEDS ORDERED: RANI150T PO ×2 (19:43→19:45)
== END 2017-05-06 20:48 | disposition home or self-care (01) ==
LOC: NEPE 15:20
DX: K92.1 Melena (principal); K21.9 Gastro-esophageal reflux disease without esophagitis; J45.909 Unspecified asthma, uncomplicated; I10 Essential (primary) hypertension; F32.9 Major depressive disorder, single episode, unspecified
CPT/HCPCS: 74177; 80053; 85025; 85610; 85730; 86850; 86900; 86901; 96374; 99284; C9113; Q9967

== ENCOUNTER → 2017-05-31 | Outpatient (CLI) | payer MEDICARE ==
[~2017-05-31] MED LIST changes: +PROT40TA PO; +RANI150T PO; -ZANT150T2 PO
== END ==
LOC: PLAB 15:04
DX: M31.6 Other giant cell arteritis (principal)
CPT/HCPCS: 36415; 85652

== ENCOUNTER 2017-06-12 08:49 | Emergency (ER) | payer MEDICARE ==
[~2017-06-12] VITALS: Ht 160 cm; Wt 79.9 kg
[2017-06-12 08:56] VITALS: BP 182/88; PULSE 80; RESP 16; TEMP 98.5; O2SAT 96
[2017-06-12 09:03] LABS: BLOOD, URINE LARGE (NEG); GLUCOSE,URINE NEG (NEG); KETONE, URINE 15 mg/dL (NEG); NITRITE,URINE NEG (NEG); PH, URINE 5.5 (5.0-8.5); URINE COLOR YELLOW (YELLW/STRAW); URINE LEUKOCYTE ESTERASE LARGE (NEG)
[2017-06-12 09:11] LABS: BILIRUBIN, URINE NEG (NEG)
[2017-06-12 09:13] LABS: AMORPHOUS SEDIMENT, URINE FEW; BACTERIA, URINE MOD /hpf; WBC, URINE INNUM /hpf (0-5)
[2017-06-12 09:14] LABS: TRANSITIONAL EPI CELLS, URINE 0-5 /hpf; WHITE BLOOD CELL CLUMPS MOD
--- NOTE | 2017-06-12 09:30 | PD ---
HPI Chief Complaint: Complaint Time Seen by Provider: 09:28 Travel History International Travel<30 days: No Contact w/Intl Traveler<30days: No Traveled to known affect area: No History of Present Illness HPI Patient presents with complaints of lower abdominal discomfort for 1-2 days. Reports urinary frequency and pain. Denies hematuria. Denies fever. No new rashes. PFSH Past Medical History Arthritis: No Asthma: Yes Autoimmune Disease: Yes (temporal arteritis) Depression: Yes Heart Rhythm Problems: No Cancer: No Cardiovascular Problems: Yes (htn on meds) High Cholesterol: No Chemotherapy: No Chest Pain: No Congestive Heart Failure: No COPD: No Cerebrovascular Accident: No Diabetes: No Diminished Hearing: No Endocrine: No Gastrointestinal Disorders: Yes (GERD) GERD: Yes Genitourinary: Yes Hiatal Hernia: No Hypertension: Yes Immune Disorder: Yes (POLYNEURALGIA RHEUMATICA) Kidney Stones: No Musculoskeletal: Yes (LOW BACK PAIN FROM PREVIOUS BROKEN PELVIS ) Neurologic: Yes (essential tremor) Psychiatric: No Reproductive: No Respiratory: Yes (asthma) Migraines: No Radiation Therapy: No Renal Failure: No Seizures: No Sickle Cell Disease: No Sleep Apnea: No Thyroid Disease: No Ulcer: No Tetanus Vaccination: < 5 Years Influenza Vaccination: No ?: Not Past Surgical History Abdominal Surgery: Yes (APPENDECTOMY ) AICD: No Arteriovenous Shunt: Yes Cardiac Surgery: No Ear Surgery: No Endocrine Surgery: No Eye Surgery: No Genitourinary Surgery: No Gynecologic Surgery: Yes (1972 HYSTERECTOMY) Hysterectomy: Yes Insulin Pump: No Joint Replacement: No Pacemaker: No Thoracic Surgery: No Other Surgery: Yes Social History Alcohol Use: No Tobacco Use: No Substance Use: No Allergies-Medications (Allergen,Severity, Reaction): Coded Allergies: Sulfa (Sulfonamide Antibiotics) (Verified Allergy, Unknown, 06/12/17) Reported Meds & Prescriptions Reported Meds & Active Scripts Active Protonix (Pantoprazole Sodium) 40 Mg Tab 40 Mg PO DAILY Reported Proventil Hfa 6.7 GM Inh (Albuterol Sulfate) 90 Mcg/Act Aer 2 Puff INH Q4-6H PRN Zoloft (Sertraline HCl) 50 Mg Tab 75 Mg PO HS Prednisone 5 Mg Tab 5 Mg PO DAILY Singulair (Montelukast Sodium) 10 Mg Tab 10 Mg PO HS Vitamin D-1000 (Cholecalciferol) 1,000 Unit Tab 1,000 Units PO DAILY Narcisovan Hct (Valsartan-Hydrochlorothiazide) 160-12.5 Mg Tab 1 Tab PO DAILY Review of Systems General / Constitutional: No: Fever Eyes: No: Visual changes HENT: No: Headaches Cardiovascular: No: Chest Pain or Discomfort Respiratory: No: Shortness of Breath Gastrointestinal: No: Abdominal Pain Genitourinary: Positive: Urgency, Frequency, Dysuria Musculoskeletal: No: Pain Skin: No Rash Neurologic: No: Weakness Psychiatric: No: Depression Endocrine: No: Polydipsia Hematologic/Lymphatic: No: Easy Bruising Physical Exam Narrative GENERAL: Well-nourished, well-developed patient. SKIN: Focused skin assessment warm/dry. HEAD: Normocephalic. EYES: No scleral icterus. No injection or drainage. NECK: Supple, trachea midline. No JVD or lymphadenopathy. CARDIOVASCULAR: Regular rate and rhythm without murmurs, gallops, or rubs. RESPIRATORY: Breath sounds equal bilaterally. No accessory muscle use. GASTROINTESTINAL: Abdomen soft, diffuse mid lower abdominal tenderness, nondistended. MUSCULOSKELETAL: No cyanosis, or edema. BACK: Nontender without obvious deformity. No CVA tenderness. Data Data Last Documented VS Vital Signs Date Time Temp Pulse Resp B/P (MAP) Pulse Ox O2 Delivery O2 Flow Rate FiO2 06/12/17 08:56 98.5 80 16 182/88 (119) 96 Orders Orders Urinalysis - C+S If Indicated (06/12/17 08:55) Urine Culture (06/12/17 08:55) Labs Laboratory Tests Test 06/12/17 08:55 Urine Collection Type CLEAN CATCH Urine Color YELLOW Urine Turbidity TURBID Urine pH 5.5 Urine Specific [place] GREATER/EQUAL 1.030 Urine Protein 100 mg/dL Urine Glucose (UA) NEG mg/dL Urine Ketones 15 mg/dL Urine Occult Blood LARGE Urine Nitrite NEG Urine Bilirubin NEG Urine Urobilinogen 1.0 MG/DL Urine Leukocyte Esterase LARGE Urine RBC 20-24 /hpf Urine WBC INNUM /hpf Urine WBC Clumps MOD Urine Squamous Epithelial Cells 6-8 /hpf Urine Transitional Epithelial Cells 0-5 /hpf Urine Amorphous Sediment FEW Urine Bacteria MOD /hpf Microscopic Urinalysis Comment CULTURE INDICATED Urine Collection Time 0855 MDM Medical Decision Making Medical Screen Exam Complete: Yes Emergency Medical Condition: Yes Differential Diagnosis UTI, nephrolithiasis, cystitis, urethritis Narrative Course Assessment and plan discussed the patient at bedside Diagnosis Primary Impression: UTI (urinary tract infection) Qualified Codes: N39.0 - Urinary tract infection, site not specified; R31.9 - Hematuria, unspecified Additional Instructions: Rest fluids and Tylenol, encouraged a cranberry supplement, follow-up with PCP, return to emergency with any onset of new symptoms. Med/Other Pt SpecificInfo: Prescription(s) given Scripts Levofloxacin (Levaquin) 250 Mg Tablet 250 MG PO DAILY for Infection for 5 Days, #5 TAB 0 Refills Prov: Jagdish Mitchell MD 06/12/17 Disposition: 01 DISCHARGE HOME Condition: Good Jagdish Mitchell MD Jun 12, 2017 09:30
[2017-06-12] MEDS ORDERED: LEVA250T14 PO (09:32)
== END 2017-06-12 10:03 | disposition home or self-care (01) ==
LOC: PHED 08:49
DX: N39.0 Urinary tract infection, site not specified (principal); B96.20 Unspecified Escherichia coli [E. coli] as the cause of diseases classified elsewhere; J45.909 Unspecified asthma, uncomplicated; F32.9 Major depressive disorder, single episode, unspecified; K21.9 Gastro-esophageal reflux disease without esophagitis; I10 Essential (primary) hypertension; M35.3 Polymyalgia rheumatica; Z79.899 Other long term (current) drug therapy; Z88.2 Allergy status to sulfonamides
CPT/HCPCS: 81001; 87077; 87086; 87186; 99283